=== PATIENT | male | born 1950 | race Caucasian/White ===

== ENCOUNTER 2020-04-22 16:49 | Outpatient (CLI) | payer OTHER, SELFPAY ==
--- NOTE | ~2020-04-22 | XR_ITS ---
EXAMINATION: XR chest 2V DATE: 04/22/2020 17:08 INDICATION: Chest pain TECHNIQUE: Frontal and lateral views of the chest are obtained COMPARISON: 06/08/2010 FINDINGS: The lungs are free of acute opacities. There is no pleural effusion or pneumothorax. The ca rdiomediastinal silhouette is normal. There is mild thoracic spondylosis. A dual-lead cardiac pacemak er of the left chest wall ends with leads in expected locations which appears to have undergone inter sierra revision. IMPRESSION: 1. No acute cardiopulmonary abnormality. Reviewed, dictated and finalized at location A. 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
== END 2020-04-22 16:50 | disposition home or self-care (01) ==
PROVIDERS: PCP Internal Medicine; Visit Provider Internal Medicine Cardiovascular Disease
DX: R07.89 Other chest pain (principal); Z95.0 Presence of cardiac pacemaker
CPT/HCPCS: 71046

== ENCOUNTER 2021-02-07 08:54 | Outpatient (CLI) | payer OTHER, SELFPAY ==
--- NOTE | ~2021-02-07 | CT_ITS ---
EXAMINATION: CT brain wo con DATE: 02/07/2021 09:16 INDICATION: Diminished cognitive function TECHNIQUE: Computed tomography (CT) of the head was performed without intravenous contrast. The mA wa s adjusted according to patient size. Iterative reconstruction technique was employed. Exam dose: 60 5.33 mGy-cm total exam DLP. COMPARISON: 10/04/2007 CT brain FINDINGS: No intracranial mass lesion or hemorrhage or cerebrovascular accident is detected. There is no midline shift or mass effect. Normal ventricular size. There are subtle bilateral basal ganglia calcifications. Bilateral carotid siphon internal carotid artery calcifications. There is nonspecific diminished atte nuation of the cerebral white matter, likely due to chronic small vessel ischemic changes. There is moderate cerebral and cerebellar volume loss. No subdural or epidural hematoma. No fracture or bone destruction of the cranial vault. Included paranasal sinuses and mastoid air cells are unremarkable. IMPRESSION: Cerebral atherosclerosis and chronic small vessel ischemic changes of cerebral Reviewed, dictated and finalized at Location A. Reviewed, dictated and finalized at location B.
[2021-02-07 11:13] LABS: Alanine Aminotransferase 9 U/L (4-50); Albumin Level 3.9 g/dL (3.5-5.1); Alkaline Phosphatase 60 U/L (38-126); Anion Gap 5 mmol/L (8-16); Aspartate Amino Transferase 17 U/L (17-59); Bilirubin,Total 0.6 mg/dL (0.2-1.3); Blood Urea Nitrogen 10 mg/dL (9-20); Calcium 8.8 mg/dL (8.4-10.2); Carbon Dioxide 29 mmol/L (22-30); Chloride 110 mmol/L (98-107); Cholesterol 155 mg/dL (0-200); Estimated Glomerular Filt Rate > 60; Glucose 105 mg/dL (65-110); HDL Direct 56 mg/dL; Potassium 4.4 mmol/L (3.4-5.0); Sodium 144 mmol/L (137-145); Triglycerides 83 mg/dL (<150)
[2021-02-07 11:18] LABS: Hemoglobin A1C 5.3 % (<5.7)
[2021-02-07 11:24] LABS: LDL Cholesterol Direct 87 mg/dL
== END 2021-02-07 08:55 | disposition home or self-care (01) ==
PROVIDERS: PCP Internal Medicine; Visit Provider Nurse Practitioner
DX: R41.89 Other symptoms and signs involving cognitive functions and awareness (principal); E78.5 Hyperlipidemia, unspecified; R73.09 Other abnormal glucose; I67.2 Cerebral atherosclerosis
CPT/HCPCS: 36415; 70450; 80053; 80061; 82607; 83036; 84443

== ENCOUNTER 2021-05-17 09:22 | Outpatient (CLI) | payer OTHER, SELFPAY ==
[2021-05-17 10:38] LABS: Alanine Aminotransferase 12 U/L (4-50); Albumin Level 4.1 g/dL (3.5-5.1); Alkaline Phosphatase 63 U/L (38-126); Anion Gap 9 mmol/L (8-16); Aspartate Amino Transferase 18 U/L (17-59); Bilirubin,Total 0.6 mg/dL (0.2-1.3); Blood Urea Nitrogen 7 mg/dL (9-20); Carbon Dioxide 27 mmol/L (22-30); Chloride 104 mmol/L (98-107); Cholesterol 172 mg/dL (0-200); Estimated Glomerular Filt Rate > 60; Glucose 115 mg/dL (65-110); HDL Direct 60 mg/dL; Hemoglobin A1C 5.4 % (<5.7); Potassium 4.2 mmol/L (3.4-5.0); Sodium 140 mmol/L (137-145); Triglycerides 90 mg/dL (<150)
[2021-05-17 10:51] LABS: LDL Cholesterol Direct 101 mg/dL
[2021-05-17 11:11] LABS: Prostate Specific Antigen 0.5 ng/mL (< OR = 4.0)
== END 2021-05-17 09:23 | disposition home or self-care (01) ==
PROVIDERS: Nurse Practitioner; PCP Internal Medicine; Visit Provider Internal Medicine
DX: E78.5 Hyperlipidemia, unspecified (principal); R73.09 Other abnormal glucose; Z12.5 Encounter for screening for malignant neoplasm of prostate; E53.8 Deficiency of other specified B group vitamins
CPT/HCPCS: 36415; 80053; 80061; 82607; 83036; 84153; G0103

== ENCOUNTER 2021-07-27 18:20 | Emergency (ER) | payer OTHER, SELFPAY ==
--- NOTE | ~2021-07-27 | CT_ITS ---
EXAMINATION: CT brain wo con DATE: 07/27/2021 19:38 INDICATION: Patient was found on the ground, with no memory of any fall. TECHNIQUE: Computed tomography (CT) of the head was performed without intravenous contrast. The mA wa s adjusted according to patient size. Iterative reconstruction technique was employed. Exam dose: 60 5.33 mGy-cm total exam DLP. COMPARISON: 02/07/2021 CT brain FINDINGS: Moderately prominent cerebral and cerebellar atrophy. No intracranial mass lesion or hemorr jillian or cerebrovascular accident is evident. No midline shift or mass effect. There is cerebral atherosclerosis and chronic small vessel ischemic changes of the cerebral white mat ter No subdural or epidural hematoma is detected. No fracture or bone destruction of the cranial vault. Included mastoid air cells and paranasal sinuses are unremarkable. IMPRESSION: Cerebral atherosclerosis and chronic small vessel ischemic changes of the cerebral white matter No acute intracranial finding or skull fracture Reviewed, dictated and finalized at Location A. Reviewed, dictated and finalized at location A.
--- NOTE | ~2021-07-27 | XR_ITS ---
XR ribs LT 2V w CXR 2V DATE: 07/27/2021 21:14 INDICATION: Found on ground [employer]; left rib pain. TECHNIQUE: COMPARISON: None FINDINGS: There is suggestion of left ventricular enlargement. Left-sided transvenous pacemaker device with leads overlying right atrium and right ventricle. No pulmonary infiltrate or consolidation, pleural effusion or pulmonary vascular congestion or pneumo thorax. No left rib fracture or bone destruction is evident. Approximately 6.5 mm calcification overlying upper right quadrant of abdomen, possibly a gallstone. Degenerative changes of the thoracic and lumbar spine. Diffuse osteopenia. Radiopaque sutures overlie the midline of the abdomen. IMPRESSION: Left-sided dual-lead pacemaker device No active pulmonary disease Probable calcified gallstone Reviewed, dictated and finalized at location A.
[2021-07-27 18:35] VITALS: BP 126/90; PULSE 84; RESP 17; TEMP 37.6; O2SAT 100
--- NOTE | 2021-07-27 19:10 | ECG_ITS ---
Measurements Intervals [place] Rate: 86 P: [place]: 0 QRS: 18 QRSD: 88 T: 10 QT: 383 QTc: 458 Interpretive Statements ATRIAL FIBRILLATION POSSIBLE RIGHT VENTRICULAR CONDUCTION DELAY [RSR (QR) IN V1/V2] ABNORMAL RHYTHM ECG NO PREVIOUS ECG AVAILABLE FOR COMPARISON Electronically Signed On 07-27-2021 20:30:42 CDT by Luz Michelle M.D.
[2021-07-27 19:56] LABS: Basophils Absolute Auto 0.1 K/mm3 (0.0-0.1); Basophils Percent Auto 0.6 % (0.2-1.2); Eosinophils Absolute Auto 0.1 K/mm3 (0-0.3); Hematocrit 39.6 % (42.0-52.0); Hemoglobin 13.3 g/dL (14.0-18.0); Immature Granulocyte Absolute 0.02 K/mm3 (0.00-0.031); Immature Granulocyte Percent A 0.2 % (0-0.5); Immature Platelet Fraction Pct 2.6 % (0.9-11.2); Lymphocytes Absolute Auto 1.92 K/mm3 (0.9-3.2); Lymphocytes Percent Auto 22.3 % (18.3-44.2); Mean Corpuscular HGB Conc 33.6 g/dl (32-36); Mean Corpuscular Hemoglobin 31.6 pg (26-34); Mean Corpuscular Volume 94.1 fl (80-100); Mean Platelet Volume 10.1 fl (7.4-10.4); Monocytes Absolute Auto 0.6 K/mm3 (0.1-0.6); Monocytes Percent Auto 6.6 % (2.6-8.5); Neutrophils Percent Auto 69.3 % (45.5-73.1); Platelet Count Result 134 k/mm3 (150-375); Red Blood Count 4.21 M/mm3 (4.6-6.20); Red Cell Distribution Width 13.2 % (11.5-14.5); White Blood Count 8.6 K/mm3 (4.5-10.0)
[2021-07-27 20:04] LABS: Ethanol < 10 mg/dL (<10)
[2021-07-27 20:08] LABS: Alanine Aminotransferase 8 U/L (4-50); Albumin Level 3.6 g/dL (3.5-5.1); Alkaline Phosphatase 65 U/L (38-126); Anion Gap 8 mmol/L (8-16); Aspartate Amino Transferase 18 U/L (17-59); Bilirubin,Total 0.8 mg/dL (0.2-1.3); Blood Urea Nitrogen 12 mg/dL (9-20); Calcium 8.4 mg/dL (8.4-10.2); Carbon Dioxide 25 mmol/L (22-30); Chloride 106 mmol/L (98-107); Estimated CRCL calculation 61 ml/min; Estimated Glomerular Filt Rate > 60; Glucose 91 mg/dL (65-110); Potassium 3.4 mmol/L (3.4-5.0); Sodium 139 mmol/L (137-145)
[2021-07-27 20:17] LABS: NT Pro B Type Natriuretic Pept 925 pg/mL (5-100)
[2021-07-27 20:19] LABS: Troponin I < 0.012 ng/mL (0.000-0.034)
--- NOTE | 2021-07-27 21:52 | ED.GENADULT ---
HPI - General Adult General Chief complaint: Weakness Stated complaint: altered and sob Time Seen by Provider: 07/27/21 18:56 Source: patient and EMS Mode of arrival: EMS Limitations: no limitations History of Present Illness HPI narrative: 71-year-old with a history of dementia s/p pacemaker was brought in by EMS, was found outside laying on his porch. Patient complains of left sided rib pain. He denies any loss of consciousness. He denies any shortness of breath, abdominal pain or headache. Onset (ago): unknown Location: chest (Left) Severity: mild Quality: aching Relieving factors: none Exacerbating factors: none Associated symptoms: denies other symptoms Related Data Home Medications Medication Instructions Recorded Confirmed metoprolol succinate 50 mg 50 mg PO DAILY 05/05/21 06/14/21 tablet,extended release 24 hr Allergies Allergy/AdvReac Type Severity Reaction Status Date / Time red dye Allergy Unknown Unknown Verified 06/14/21 10:12 shrimp Allergy Unknown Unknown Verified 06/14/21 10:12 iodine AdvReac Unknown cellulitis Verified 06/14/21 10:12 Review of Systems Review of Systems: All systems reviewed & are unremarkable except as noted in HPI and below Constitutional: Constitutional: Reports no additional constitutional complaints Eyes: Eyes: Reports no additional eye complaints ENT: Reports system reviewed and no additional complaints, except as documented Cardiovascular: Cardiovascular: Reports no additional cardiovascular complaints Respiratory: Respiratory: Reports no additional respiratory complaints Gastrointestinal: Gastrointestinal: Reports no additional gastrointestinal complaints Musculoskeletal: Musculoskeletal: Reports no additional musculoskeletal complaints Integumentary/Breasts: Skin/Breast: Reports system reviewed and no additional complaints, except as docu Neurologic: Reports system reviewed and no additional complaints, except as documented [facility] Past Medical History Medical History COVID-19 Elevated lipids Screening for prostate cancer Family History Family History Sibling Patient's sister is in good health Patient's brother is in good health Social History Social History Smoking status: Current every day smoker (pipe) Tobacco type: pipe Second hand tobacco smoke exposure: Yes Alcohol intake: never Substance use: never Substance use type: does not use Exam Narrative: GENERAL: Well-appearing, well-nourished, and in no acute distress. HEAD: Normocephalic, atraumatic. EYES: PERRLA and EOMI. NECK: Supple. CHEST: Clear to auscultation. No respiratory distress. There is no obvious bruising noted on the left hemithorax front and back. HEART: Regular rate and rhythm. No murmur heard. Normal peripheral pulses. ABDOMEN: Soft, nontender, nondistended, normal active bowel sounds. EXTREMITIES: Normal range of motion. No edema. SKIN: Warm, dry, no rash. NEURO: No focal deficits. Alert and oriented x3. PSYCH: Normal mood and affect. Course Course Emergency Course: With a history of dementia I did a CT of the head and blood work and left rib series nothing is obvious. You might of bruised. She feels comfortable going home. Informed him about lab work, x-ray findings. Vital Signs Vital signs: Vital Signs Temperature 37.6 C 07/27/21 18:35 Pulse Rate 84 07/27/21 18:35 Respiratory Rate 17 07/27/21 18:35 Blood Pressure 126/90 07/27/21 18:35 Pulse Oximetry 100 07/27/21 18:35 Temperature 37.6 C 07/27/21 18:35 Pulse Rate 84 07/27/21 18:35 Respiratory Rate 17 07/27/21 18:35 Blood Pressure 126/90 07/27/21 18:35 Pulse Oximetry 100 07/27/21 18:35 Medical Decision Making MDM Narrative Medical decision making narrative: 71-year-old with a history of dementia with a
[2021-07-27 22:24] VITALS: BP 111/78; PULSE 76; RESP 19; O2SAT 93
== END 2021-07-27 22:25 | disposition home or self-care (01) ==
PROVIDERS: Emergency Provider Family Medicine; PCP Internal Medicine
DX: S20.212A Contusion of left front wall of thorax, initial encounter (principal); I48.91 Unspecified atrial fibrillation; Z72.0 Tobacco use; Z86.16 Personal history of COVID-19; X58.XXXA Exposure to other specified factors, initial encounter; R06.02 Shortness of breath; Z79.899 Other long term (current) drug therapy
CPT/HCPCS: 36415; 70450; 71046; 71100; 80053; 80307; 83880; 84484; 85025; 85055; 93005; 99284

== ENCOUNTER 2023-06-29 15:38 | Outpatient (NON) | payer OTHER, SELFPAY ==
[2023-06-29 16:07] LABS: Appearance Urine Clear (Clear); Bilirubin Urine Negative (Negative); Blood Urine Negative (Negative); Color Urine Light Yellow (Yellow); Glucose Urine UA Negative (Negative); Ketones Urine Negative (Negative); Leukocyte Esterase Ur Negative LEU/UL (Negative); Nitrate Urine Negative (Negative); Protein Urine Negative (Negative); Specific Grav Ur >= 1.030 (1.010-1.020); Urobilinogen Urine 0.2 mg/dL (0.2-1.0)
[2023-06-29 16:08] LABS: Add Urine Microscopic? NO
== END 2023-06-29 15:39 | disposition home or self-care (01) ==
LOC: CHSLAB 15:42
PROVIDERS: Visit Provider Family Medicine
DX: R82.90 Unspecified abnormal findings in urine (principal)
CPT/HCPCS: 81003

== ENCOUNTER 2023-06-30 07:10 | Outpatient (NON) | payer OTHER, SELFPAY ==
[2023-06-30 07:22] LABS: Basophils Absolute Auto 0.04 K/mm3 (0.00-0.10); Basophils Percent Auto 0.7 % (0.0-1.0); Eosinophils Absolute Auto 0.09 K/mm3 (0.02-0.50); Eosinophils Percent Auto 1.5 % (1.0-6.0); Hematocrit 42.5 % (37.0-46.0); Immature Granulocyte Absolute 0.02 K/mm3 (0.00-0.00); Immature Granulocyte Percent A 0.3 % (0.0-0.0); Lymphocytes Absolute Auto 2.22 K/mm3 (1.10-4.50); Lymphocytes Percent Auto 36.2 % (18.0-42.0); Mean Corpuscular HGB Conc 32.9 g/dL (32.0-36.0); Mean Corpuscular Volume 91.2 fL (78.0-102.0); Mean Platelet Volume 9.7 fl (8.7-11.0); Monocytes Absolute Auto 0.54 K/mm3 (0.10-0.90); Monocytes Percent Auto 8.8 % (2.0-11.0); Neutrophils Absolute Auto 3.2 K/mm3 (1.7-7.2); Neutrophils Percent Auto 52.5 % (50.0-70.0); Platelet Count Result 174 K/mm3 (150-420); Red Blood Count 4.66 M/mm3 (4.70-6.10); Red Cell Distribution Width 13.4 % (11.6-14.4); White Blood Count 6.1 K/mm3 (4.8-10.8)
[2023-06-30 07:25] LABS: Anion Gap 9 mmol/L (8-16); Blood Urea Nitrogen 10 mg/dL (7-18); Calcium 8.4 mg/dL (8.5-10.1); Carbon Dioxide 27 mmol/L (21-32); Chloride 106 mmol/L (98-108); Estimated Glomerular Filt Rate > 60; Glucose 106 mg/dL (70-99); Osmolality Calculated 293 mOsm/kg (285-295); Potassium 4.1 mmol/L (3.5-5.1); Sodium 142 mmol/L (136-145)
== END 2023-06-30 07:11 | disposition home or self-care (01) ==
PROVIDERS: Visit Provider Family Medicine
DX: N40.0 Benign prostatic hyperplasia without lower urinary tract symptoms (principal); K21.9 Gastro-esophageal reflux disease without esophagitis; E55.9 Vitamin D deficiency, unspecified; D69.6 Thrombocytopenia, unspecified; E78.5 Hyperlipidemia, unspecified; I10 Essential (primary) hypertension
CPT/HCPCS: 36415; 80048; 85025

== ENCOUNTER 2023-10-16 11:14 | Inpatient (IN) | payer MEDICARE, SELFPAY ==
[2023-10-16] VITALS (8 sets, daily range): BP systolic 112–134; BP diastolic 70–95; PULSE 79–96; RESP 12–19; TEMP 36.4–36.6; O2SAT 90–98; BMI 19.8
--- NOTE | ~2023-10-16 | XR_ITS ---
EXAMINATION: XR chest 2V 10/16/2023 12:35 INDICATION: Weakness. Coffee-ground emesis. PROCEDURE: AP and lateral views of the chest COMPARISON: Comparison to multiple prior studies sequentially, with oldest reviewed study dated 07/27. FINDINGS: The lungs are clear. The cardiomediastinal silhouette is within normal limits. There are no pleural effusions. There is no pneumothorax suspected. Pacemaker leads are stable. Mild thoracic spondylosis. IMPRESSION: 1: NO ACUTE CARDIOPULMONARY DISEASE. Reviewed, dictated and finalized at location B.
--- NOTE | ~2023-10-16 | XR_ITS ---
Portable chest x-ray Comparison: 10/16/2023 Clinical History: Leukocytosis Findings: Lungs are clear, without focal consolidation or pleural effusion. Cardiomediastinal silho uette is stable, with pacemaker device. Bones and soft tissues are unremarkable. Impression: Clear lungs. Reviewed, dictated and finalized at [facility]. Impression: Clear lungs.
--- NOTE | 2023-10-16 11:25 | ECG_ITS ---
[facility] [address] Test Date: 2023-10-16 Pat Name: Jefe Rea Department: Room: Gender: M Annual Giving Manager: : 1950 Requested By: Denys Espinosa Order Number: [id number] Stuart MD: Evangelina Boone M.D. Measurements Intervals [place] Rate: 80 P: 0 [place]: 0 QRS: 20 QRSD: 97 T: -16 QT: 362 QTc: 418 Interpretive Statements ATRIAL FIBRILLATION WITH ABERRANT CONDUCTION OR VENTRICULAR PREMATURE COMPLEXES MODERATE T-WAVE ABNORMALITY, CONSIDER ANTERIOR ISCHEMIA [-0.1+ mV T WAVE IN V3/V4] No previous ECG available for comparison Electronically Signed On 10-16-2023 14:26:26 CDT by Evangelina Boone M.D.
[2023-10-16 12:09] LABS: Basophils Percent Auto 0.5 % (0.2-1.2); Eosinophils Percent Auto 0.1 % (0-4.4); Hemoglobin 15.9 g/dL (14.0-18.0); Immature Granulocyte Absolute 0.02 K/mm3 (0.00-0.031); Immature Granulocyte Percent A 0.3 % (0-0.5); Lymphocytes Absolute Auto 0.73 K/mm3 (0.9-3.2); Lymphocytes Percent Auto 9.2 % (18.3-44.2); Mean Corpuscular HGB Conc 33.1 g/dl (32-36); Mean Corpuscular Hemoglobin 31.3 pg (26-34); Mean Corpuscular Volume 94.5 fl (80-100); Mean Platelet Volume 11.6 fl (7.4-10.4); Monocytes Absolute Auto 0.7 K/mm3 (0.1-0.6); Monocytes Percent Auto 8.3 % (2.6-8.5); Neutrophils Absolute Auto 6.5 K/mm3 (1.3-6.7); Neutrophils Percent Auto 81.6 % (45.5-73.1); Platelet Count Result 152 k/mm3 (150-375); Red Blood Count 5.08 M/mm3 (4.6-6.20); Red Cell Distribution Width 14.6 % (11.5-14.5); White Blood Count 7.9 K/mm3 (4.5-10.0)
[2023-10-16 12:12] LABS: Appearance Urine Clear (Clear); Bilirubin Urine Negative (Negative); Blood Urine Negative (Negative); Color Urine Yellow (Yellow); Glucose Urine UA Negative (Negative); Ketones Urine 1+ mg/dL (Negative); Leukocyte Esterase Ur Negative LEU/UL (Negative); Nitrate Urine Negative (Negative); Protein Urine Negative (Negative); Urobilinogen Urine 0.2 mg/dL (<2.0)
[2023-10-16 12:15] LABS: Add Urine Microscopic? NO
[2023-10-16 12:21] LABS: Alanine Aminotransferase 30 U/L (6-50); Albumin Level 4.7 g/dL (3.5-5.1); Alkaline Phosphatase 86 U/L (38-126); Anion Gap 14 mmol/L (4-12); Aspartate Amino Transferase 35 U/L (17-59); Blood Urea Nitrogen 39 mg/dL (9-20); Calcium 9.6 mg/dL (8.4-10.2); Carbon Dioxide 28 mmol/L (22-30); Chloride 102 mmol/L (98-107); Estimated CRCL calculation 39 ml/min; Estimated Glomerular Filt Rate 49; Glucose 130 mg/dL (65-110); Potassium 4.5 mmol/L (3.4-5.0); Sodium 144 mmol/L (137-145)
--- NOTE | 2023-10-16 12:31 | ED.WEAKNESS ---
HPI - Weakness General Chief complaint: Weakness Stated complaint: GI bleed Time Seen by Provider: 10/16/23 12:30 Source: EMS and RN notes reviewed Mode of arrival: EMS Limitations: dementia History of Present Illness HPI Narrative: 73-year-old male presents from half-way facility/nursing facility with reported complaint of weakness. It is reported that he has been vomiting and there was a allegedly coffee-ground emesis. Patient has underlying dementia and is unable to provide history. It is reported that at baseline he is alert and oriented x2. He does not know if he is having abdominal pain. facility had reported that he has had decreased urinary output as well as decreased bowel movements. He received Zofran from EMS. skilled nursing documentation does not list any underlying liver disease or heart failure. Patient's medication list from skilled nursing is reviewed which shows aspirin but no heart failure modifying medications nor anticoagulation/ NSAIDs/steroids/chemo. Related Data Home Medications Medication Instructions Recorded Confirmed metoprolol succinate 50 mg 50 mg PO DAILY 05/05/21 10/16/23 tablet,extended release 24 hr allopurinol 100 mg tablet 100 mg PO DAILY 10/16/23 10/16/23 alprazolam 0.25 mg tablet 0.25 mg PO BID PRN Anxiety 10/16/23 10/16/23 aspirin 81 mg tablet,delayed 81 mg PO DAILY 10/16/23 10/16/23 release cholecalciferol (vitamin D3) 25 25 mcg PO DAILY 10/16/23 10/16/23 mcg (1,000 unit) capsule (Vitamin D3) colchicine 0.6 mg capsule 0.6 mg PO DAILY 10/16/23 10/16/23 divalproex 125 mg capsule,delayed 125 mg PO BID 10/16/23 10/16/23 release sprinkle donepezil 5 mg tablet 5 mg PO HS 10/16/23 10/16/23 melatonin 5 mg tablet 5 mg PO HS 10/16/23 10/16/23 Allergies Allergy/AdvReac Type Severity Reaction Status Date / Time red dye Allergy Unknown Unknown Verified 06/14/21 10:12 shrimp Allergy Unknown Unknown Verified 06/14/21 10:12 iodine AdvReac Unknown cellulitis Verified 06/14/21 10:12 [facility] Past Medical History Medical History Anxiety disorder, unspecified COVID-19 Deficiency of other specified B group vitamins Essential (primary) hypertension Gastroesophageal reflux disease with esophagitis without hemorrhage Hyperlipidemia Idiopathic gout, unspecified ankle and foot Insomnia, unspecified Mixed hyperlipidemia Nicotine dependence, unspecified, uncomplicated Other amnesia Pacemaker Primary thrombocytopenia, unspecified Screening for prostate cancer Unspecified dementia, unspecified severity, without behavioral disturbance, psychotic disturbance, mood disturbance, and anxiety Vitamin B12 deficiency anemia, unspecified Family History Family History Sibling Patient's sister is in good health Patient's brother is in good health Social History Social History (Updated 10/16/23 @ 13:09 by Gretel Deal MD) Social History: No code status indicated per facility documentation Smoking status: Current every day smoker Tobacco type: cigarettes Second hand tobacco smoke exposure: Yes Alcohol intake: never Substance use: never Substance use type: does not use Additional living arrangements comments: [facility] 08/26[facility]21 Spiritual care concerns: No Exam Narrative: GENERAL: Well-appearing, well-nourished, and in no acute distress. HEAD: Normocephalic, atraumatic. EYES: Non injected, non icteric ENT: Nares clear, no rhinorrhea or epistaxis. no pina or dried blood in posterior oropharynx. Dry mucous membranes. NECK: Supple. CHEST: Speaking in full sentences. No respiratory distress. HEART: Regular rate and rhythm. . ABDOMEN: Soft, nondistended. Well-healed midline scar. No tenderness to palpation. Abdomen is without rigidity or guarding. Not peritoneal. Rectal exam performed with nurse Andres lackey
[2023-10-16] MEDS: PANTOPRAZOLE SODIUM IV 40 MG VIAL 80 MG IV PUSH (12:49)
[2023-10-16] MEDS: SODIUM CHLORIDE 0.9% IV 1,000 ML 999 ML IV CONT (13:06)
[2023-10-16 13:08] LABS: Magnesium 2.1 mg/dL (1.6-2.3)
[2023-10-16 13:17] LABS: Troponin I < 0.012 ng/mL (0.000-0.034)
[2023-10-16 13:19] LABS: Partial Thromboplastin Time 26.3 Seconds (22.3-36.8); Prothrombin Time 14.1 Seconds (11.1-14.7)
[2023-10-16 13:39] LABS: Lactic Acid Reflex 1.9 mmol/L (0.7-2.0)
--- NOTE | 2023-10-16 14:31 | PC.NURSE ---
[facility] updated on patient status and admission to hospital.
--- NOTE | 2023-10-16 16:16 | PC.NURSE ---
This patient, Jefe Rea, was admitted to [facility] Room 323-02. Patient/family oriented to hospital policies and general routines including ID bracelet, bed and alarms, visiting hours, pain management, procedures, bathroom and other care routines, personal items, smoking policy, room service/diet, and visiting hours. Information on how to activate the Rapid Response Team has been discussed. Patient/Family are encouraged to report perceived risks to care and to ask questions if they do not understand what they are told or what they should do.
--- NOTE | 2023-10-16 16:18 | PC.NURSE ---
Admission questions were completed to the best of RN ability. Patient is oriented to person only at this time. Patient has history of dementia. RN completed medication reconciliation and admission with transfer sheets sent from [facility] to [facility] with EMS.
[2023-10-16 16:38] LABS: Hematocrit 43.5 % (42.0-52.0); Hemoglobin 13.6 g/dL (14.0-18.0)
[2023-10-16 16:44] LABS: Anion Gap 9 mmol/L (4-12); Blood Urea Nitrogen 37 mg/dL (9-20); Calcium 8.8 mg/dL (8.4-10.2); Carbon Dioxide 28 mmol/L (22-30); Chloride 106 mmol/L (98-107); Estimated CRCL calculation 46 ml/min; Estimated Glomerular Filt Rate 59; Glucose 116 mg/dL (65-110); Potassium 4.3 mmol/L (3.4-5.0); Sodium 143 mmol/L (137-145)
[2023-10-16] MEDS: LACTATED RINGERS 1,000 ML 125 ML IV CONT (16:49)
--- NOTE | 2023-10-16 20:07 | PM.IMHP ---
H&P: HPI History of Present Illness Date/Time: 10/16/23 20:07 Chief Complaint: coughed up blood Narrative: patient is 73-year-old male who [facility] report to be complain of weakness also reported that he had some vomiting and coffee-ground emesis. Patient has underlying dementia and hyperlipidemia is alert oriented x2. Unable to give us any concrete history what happens but eating comfortably denied any chest pain no shortness of breath fevers chills nausea vomiting diarrhea noted the stools denies any history of shortness of breath denies any use of any new medications for pain. On checking patient's med list patient is not on any anticoagulation drugs no NSAID no steroids no chemotherapy Review of Systems Review of Systems: All systems reviewed & are unremarkable except as noted in HPI and below PMFSH Past Medical History Medical History Anxiety disorder, unspecified COVID-19 Deficiency of other specified B group vitamins Essential (primary) hypertension Gastroesophageal reflux disease with esophagitis without hemorrhage Hyperlipidemia Idiopathic gout, unspecified ankle and foot Insomnia, unspecified Mixed hyperlipidemia Nicotine dependence, unspecified, uncomplicated Other amnesia Pacemaker Primary thrombocytopenia, unspecified Screening for prostate cancer Unspecified dementia, unspecified severity, without behavioral disturbance, psychotic disturbance, mood disturbance, and anxiety Vitamin B12 deficiency anemia, unspecified Family History Family History Sibling Patient's sister is in good health Patient's brother is in good health Social History Social History (Updated 10/16/23 @ 13:09 by Gretel Deal MD) Social History: No code status indicated per facility documentation Smoking status: Current every day smoker Tobacco type: cigarettes Second hand tobacco smoke exposure: Yes Alcohol intake: never Substance use: never Substance use type: does not use Additional living arrangements comments: [facility] since 08/26/21 Spiritual care concerns: No Meds Home Medications and Allergies Home Medications Medication Instructions Recorded Confirmed Type metoprolol succinate 50 mg 50 mg PO DAILY 05/05/21 10/16/23 History tablet,extended release 24 hr allopurinol 100 mg tablet 100 mg PO DAILY 10/16/23 10/16/23 History alprazolam 0.25 mg tablet 0.25 mg PO BID PRN Anxiety 10/16/23 10/16/23 History aspirin 81 mg tablet,delayed 81 mg PO DAILY 10/16/23 10/16/23 History release cholecalciferol (vitamin D3) 25 25 mcg PO DAILY 10/16/23 10/16/23 History mcg (1,000 unit) capsule (Vitamin D3) colchicine 0.6 mg capsule 0.6 mg PO DAILY 10/16/23 10/16/23 History divalproex 125 mg capsule,delayed 125 mg PO BID 10/16/23 10/16/23 History release sprinkle donepezil 5 mg tablet 5 mg PO HS 10/16/23 10/16/23 History melatonin 5 mg tablet 5 mg PO HS 10/16/23 10/16/23 History Allergies Allergy/AdvReac Type Severity Reaction Status Date / Time red dye Allergy Unknown Unknown Verified 06/14/21 10:12 shrimp Allergy Unknown Unknown Verified 06/14/21 10:12 iodine AdvReac Unknown cellulitis Verified 06/14/21 10:12 Vital Signs Vital Signs - 24 hr 10/16/23 11:15 10/16/23 12:55 10/16/23 15:03 Temperature 36.6 C Pulse Rate 83 96 87 Respiratory Rate 19 12 16 Blood Pressure 126/88 117/86 112/70 Pulse Oximetry 97 98 96 Oxygen Delivery Room Air Fraction of Inspired Oxygen 10/16/23 16:23 10/16/23 16:54 10/16/23 16:00 Temperature 36.4 C Pulse Rate 79 81 Respiratory Rate 16 Blood Pressure 128/73 Pulse Oximetry 93 93 Oxygen Delivery Room Air Fraction of Inspired Oxygen 21 Exam Narrative: GENERAL: Well appearing, no acute distress. HEAD: Normocephalic, atraumatic. NECK: Supple. No susan
[2023-10-16] MEDS: ONDANSETRON INJ 4 MG/2 ML VIAL IV PUSH (20:37)
[2023-10-16] MEDS: PANTOPRAZOLE SODIUM IV 40 MG VIAL IV PUSH (20:37)
[2023-10-16 20:58] LABS: Hematocrit 43.1 % (42.0-52.0); Hemoglobin 14.4 g/dL (14.0-18.0); Immature Platelet Fraction Pct 4.8 % (0.9-11.2); Mean Corpuscular HGB Conc 33.4 g/dl (32-36); Mean Corpuscular Hemoglobin 31.2 pg (26-34); Mean Corpuscular Volume 93.5 fl (80-100); Mean Platelet Volume 11.1 fl (7.4-10.4); Platelet Count Result 134 k/mm3 (150-375); Red Blood Count 4.61 M/mm3 (4.6-6.20); Red Cell Distribution Width 14.6 % (11.5-14.5); White Blood Count 6.1 K/mm3 (4.5-10.0)
[2023-10-16 21:18] LABS: Alanine Aminotransferase 28 U/L (6-50); Albumin Level 4.2 g/dL (3.5-5.1); Alkaline Phosphatase 88 U/L (38-126); Anion Gap 12 mmol/L (4-12); Aspartate Amino Transferase 30 U/L (17-59); Bilirubin,Total 1.1 mg/dL (0.2-1.3); Blood Urea Nitrogen 36 mg/dL (9-20); Calcium 9.1 mg/dL (8.4-10.2); Carbon Dioxide 23 mmol/L (22-30); Chloride 106 mmol/L (98-107); Estimated CRCL calculation 46 ml/min; Estimated Glomerular Filt Rate 59; Glucose 147 mg/dL (65-110); Potassium 3.9 mmol/L (3.4-5.0); Sodium 141 mmol/L (137-145)
[2023-10-17] VITALS (9 sets, daily range): BP systolic 92–118; BP diastolic 54–81; PULSE 61–116; RESP 16–22; TEMP 36.3–36.5; O2SAT 93–100; BMI 19.8
[2023-10-17] MEDS: PROMETHAZINE HCL 25 MG/ML AMPUL IM (05:55)
--- NOTE | 2023-10-17 10:00 | PC.NURSE ---
RN called [facility] and gave update on patient.
--- NOTE | 2023-10-17 10:15 | PM.IMPN ---
Progress Note: A&P Assessment and Plan (1) BRIGID (acute kidney injury): Code(s): N17.9 - Acute kidney failure, unspecified Status: Acute (2) Atrial fibrillation: Code(s): I48.91 - Unspecified atrial fibrillation Status: Acute (3) Coffee ground emesis: Code(s): K92.0 - Hematemesis Status: Acute (4) Weakness: Code(s): R53.1 - Weakness Status: Acute (5) BPH w/o urinary obs/LUTS: Code(s): N40.0 - Benign prostatic hyperplasia without lower urinary tract symptoms Status: Acute Plan upper GI bleed monitor H& H. 15.9 -13.6 -14.4 Continue IV hydration. Continue IV Protonix. NPO after midnight. No aspirin No anticoagulation GI consult in the morning. may need EGD and colonoscopy Avoid any NSAID use or any steroid use BRIGID cause dehydration serum creatinine 1.4-1.2 Avoid nephrotoxic drugs. Monitor antihypertensive drug therapy. Avoid NSAIDs. Routine CMP monitoring GFR. Monitor electrolytes especially potassium. history of atrial fibrillation. Noted on any anticoagulant due to risk of falls History of hyperlipidemia history of anxiety continue alprazolam Depakote history hypertension continue metoprolol. History memory loss continue Aricept and melatonin history of gout will hold colchicine patient has no symptoms Subjective Date/time seen: 10/17/23 10:15 Interval history: Not really answering question still feels tired states that he can sleep last night so he is resting now no chest pain shortness a breath denies any hemoptysis or hematemesis or tarry stools Review of Systems Review of Systems: All systems reviewed & are unremarkable except as noted in HPI and below Exam Narrative: GENERAL: Well appearing, no acute distress. HEAD: Normocephalic, atraumatic. NECK: Supple. No adenopathy, no masses. RESPIRATORY: respirations nonlabored. , no rales, wheezing. CARDIOVASCULAR: IRRegular rate and rhythm without murmurs, . Peripheral pulses 2+ and equal bilaterally. ABDOMINAL: Soft, nontender, nondistended, no hepatosplenomegaly. Normoactive BS. MUSCULOSKELETAL: no Epigastric and no hypochondrial tenderness SKIN: Warm, dry, NEURO: A&O X3. Moves all extremities Objective Data Vital Signs Vital Signs: Vital Signs - 24 hr 10/16/23 11:15 06/04/24 12:55 10/16/23 15:03 Temperature 36.6 C Pulse Rate 83 96 87 Respiratory Rate 19 12 16 Blood Pressure 126/88 117/86 112/70 Pulse Oximetry 97 98 96 Oxygen Delivery Room Air Fraction of Inspired Oxygen 10/16/23 16:23 10/16/23 16:54 10/16/23 16:00 Temperature 36.4 C Pulse Rate 79 81 Respiratory Rate 16 Blood Pressure 128/73 Pulse Oximetry 93 93 Oxygen Delivery Room Air Fraction of Inspired Oxygen 21 10/16/23 21:18 10/16/23 20:00 10/17/23 06:11 Temperature 36.5 C 36.3 C L Pulse Rate 82 82 108 H Respiratory Rate 18 18 18 Blood Pressure 134/95 H 99/75 L Pulse Oximetry 90 90 97 Oxygen Delivery Room Air Fraction of Inspired Oxygen 21 Intake/Output Intake/Output: Intake & Output 10/14/23 10/15/23 10/16/23 10/17/23 23:59 23:59 23:59 23:59 Intake Total 2395 0 Output Total 650 Balance 1745 0 Meds/Results Medications: Active Medications Generic Name Dose Route Start Last Admin Trade Name Freq PRN Reason Stop Dose Admin Acetaminophen 650 mg 10/16/23 13:57 Acetaminophen 325 Mg Tablet PO Q4H PRN Mild Pain (1-3) or Fever Lactated Ringer's 1,000 mls @ 125 mls/hr 10/16/23 14:00 10/16/23 22:37 Lr - Lactated Ringers Iv IV CONT 0 mls/hr .Q8H SIDRA Infusion Ondansetron HCl 4 mg 10/16/23 13:57 10/16/23 20:37 Ondansetron Inj 4 Mg/2 Ml Vial IV PUSH 4 mg Q4H PRN Administration Nausea Ondansetron HCl 4 mg 10/16/23 20:13 Ondansetron Inj 4 Mg/2 Ml Vial IV PUSH Q6H PRN Nausea And Vomiting Pantoprazole Sodium 40 mg 10/16/23 21:00 10/16/23 20:37
--- NOTE | 2023-10-17 10:15 | PC.NURSE ---
RN called Anders to obtain consent for EGD since patient is unable to sign consent due to dementia. No answer at this time.
[2023-10-17 10:42] LABS: Hematocrit 44.6 % (42.0-52.0); Hemoglobin 14.6 g/dL (14.0-18.0); Immature Platelet Fraction Pct 4.8 % (0.9-11.2); Mean Corpuscular HGB Conc 32.7 g/dl (32-36); Mean Corpuscular Hemoglobin 31.2 pg (26-34); Mean Corpuscular Volume 95.3 fl (80-100); Mean Platelet Volume 11.3 fl (7.4-10.4); Platelet Count Result 124 k/mm3 (150-375); Red Blood Count 4.68 M/mm3 (4.6-6.20); Red Cell Distribution Width 14.6 % (11.5-14.5); White Blood Count 4.9 K/mm3 (4.5-10.0)
[2023-10-17 10:50] LABS: Alanine Aminotransferase 29 U/L (6-50); Albumin Level 4.1 g/dL (3.5-5.1); Alkaline Phosphatase 69 U/L (38-126); Anion Gap 10 mmol/L (4-12); Aspartate Amino Transferase 39 U/L (17-59); Blood Urea Nitrogen 39 mg/dL (9-20); Calcium 9.4 mg/dL (8.4-10.2); Carbon Dioxide 28 mmol/L (22-30); Chloride 105 mmol/L (98-107); Estimated CRCL calculation 39 ml/min; Estimated Glomerular Filt Rate 49; Glucose 124 mg/dL (65-110); Potassium 3.7 mmol/L (3.4-5.0); Sodium 143 mmol/L (137-145)
--- NOTE | 2023-10-17 11:31 | PC.NURSE ---
RN spoke with IV ultrasound Amadou Meehan to obtain new IV access on patient. He stated he will add patient to his list to see today.
--- NOTE | 2023-10-17 11:32 | PC.NURSE ---
Anders (sibling) called RN back. RODGER obtained consent for EGD via telephone from Anders and verified with Steven SOARES.
--- NOTE | 2023-10-17 13:56 | PC.NURSE ---
Patient off of unit to GI lab
[2023-10-17] MEDS: LACTATED RINGERS 1,000 ML 150 ML IV CONT (14:18)
--- NOTE | 2023-10-17 14:35 | WPDANESEPPF ---
Anes - Initial Pre Proc Eval Procedure: Operation Date: 10/17/23 16:00 Proposed Procedures p Esophagogastroduodenoscopy - Nick Collier MD Date/Time: 10/17/23 14:35 Surgeon: Amador Meeks MD Pre Op Diagnosis: ? Upper GIB/Report coffee ground emesis/BRIGID/Rate C Patient Data Age: 73 Gender: M Height: 1.85 m Weight: 68 kg Last Vital Signs Temp 97.7 F 10/17/23 14:13 Pulse 61 10/17/23 14:13 Resp 22 H 10/17/23 14:13 BP 101/81 10/17/23 14:13 Pulse Ox 93 10/17/23 14:13 O2 Del Method Room Air 10/17/23 14:13 FiO2 21 10/16/23 20:00 Allergies Allergy/AdvReac Type Severity Reaction Status Date / Time red dye Allergy Unknown Unknown Verified 06/14/21 10:12 shrimp Allergy Unknown Unknown Verified 06/14/21 10:12 iodine AdvReac Unknown cellulitis Verified 06/14/21 10:12 Home Medications Medication Instructions Recorded Confirmed Type metoprolol succinate 50 mg 50 mg PO DAILY 05/05/21 10/16/23 History tablet,extended release 24 hr allopurinol 100 mg tablet 100 mg PO DAILY 10/16/23 10/16/23 History alprazolam 0.25 mg tablet 0.25 mg PO BID PRN Anxiety 10/16/23 10/16/23 History aspirin 81 mg tablet,delayed 81 mg PO DAILY 10/16/23 10/16/23 History release cholecalciferol (vitamin D3) 25 25 mcg PO DAILY 10/16/23 10/16/23 History mcg (1,000 unit) capsule (Vitamin D3) colchicine 0.6 mg capsule 0.6 mg PO DAILY 10/16/23 10/16/23 History divalproex 125 mg capsule,delayed 125 mg PO BID 10/16/23 10/16/23 History release sprinkle donepezil 5 mg tablet 5 mg PO HS 10/16/23 10/16/23 History melatonin 5 mg tablet 5 mg PO HS 10/16/23 10/16/23 History Laboratory Tests 10/16/23 10/16/23 10/17/23 16:12 20:50 10:27 WBC 6.1 K/mm3 4.9 K/mm3 (4.5-10.0) (4.5-10.0) RBC 4.61 M/mm3 4.68 M/mm3 (4.6-6.20) (4.6-6.20) Hgb 13.6 L g/dL 14.4 g/dL 14.6 g/dL (14.0-18.0) (14.0-18.0) (14.0-18.0) Hct 43.5 % 43.1 % 44.6 % (42.0-52.0) (42.0-52.0) (42.0-52.0) MCV 93.5 fl 95.3 fl (80-100) (80-100) MCH 31.2 pg 31.2 pg (26-34) (26-34) MCHC 33.4 g/dl 32.7 g/dl (32-36) (32-36) RDW 14.6 H % 14.6 H % (11.5-14.5) (11.5-14.5) Plt Count 134 L k/mm3 124 L k/mm3 (150-375) (150-375) MPV 11.1 H fl 11.3 H fl (7.4-10.4) (7.4-10.4) % Immature Plt Fraction 4.8 % 4.8 % (0.9-11.2) (0.9-11.2) Sodium 143 mmol/L 141 mmol/L 143 mmol/L (137-145) (137-145) (137-145) Potassium 4.3 mmol/L 3.9 mmol/L 3.7 mmol/L (3.4-5.0) (3.4-5.0) (3.4-5.0) Chloride 106 mmol/L 106 mmol/L 105 mmol/L (98-107) (98-107) (98-107) Carbon Dioxide 28 mmol/L 23 mmol/L 28 mmol/L (22-30) (22-30) (22-30) Anion Gap 9 mmol/L 12 mmol/L 10 mmol/L (4-12) (4-12) (4-12) BUN 37 H mg/dL 36 H mg/dL 39 H mg/dL (9-20) (9-20) (9-20) Creatinine 1.20 mg/dL 1.20 mg/dL 1.40 H mg/dL (0.7-1.3) (0.7-1.3) (0.7-1.3) Estim Creat Clear Calc 46 ml/min 46 ml/min 39 ml/min Estimated GFR 59 59 49 L (59 - ) (59 - ) (59 - ) Glucose 116 H mg/dL 147 H mg/dL 124 H mg/dL (65-110) (65-110) (65-110) Calcium 8.8 mg/dL 9.1 mg/dL 9.4 mg/dL (8.4-10.2) (8.4-10.2) (8.4-10.2) Total Bilirubin 1.1 mg/dL 1.0 mg/dL (0.2-1.3) (0.2-1.3) AST 30 U/L 39 U/L (17-59) (17-59) ALT 28 U/L 29 U/L (6-50) (6-50) Alkaline Phosphatase 88 U/L 69 U/L (38-126) (38-126) Total Protein 7.0 g/dL 7.0 g/dL (6.3-8.2) (6.3-8.2) Albumin 4.2 g/dL 4.1 g/dL (3.5-5.1) (3.5-5.1) Patient hx anesthesia problems: none Family hx anesthesia problems: none Results Review: All pre-operative results and documents have been reviewed as part of the pre-operative evaluation. [facility] Past Medical History Medical History Anxiety disorder, unspecified COVID-19 Defic
--- NOTE | 2023-10-17 14:52 | WPDGICN ---
Assessment and Plan Assessment and plan (1) Coffee ground emesis: Code(s): K92.0 - Hematemesis Status: Acute Assessment and Plan: no more report of bleeding and h/h stable iv protonix will proceed with egd, ? esophagitis, ulcer more recommendations after scope (2) Atrial fibrillation: Code(s): I48.91 - Unspecified atrial fibrillation Status: Acute (3) BRIGID (acute kidney injury): Code(s): N17.9 - Acute kidney failure, unspecified Status: Acute Assessment and Plan: monitor, fluids (4) Dementia: Code(s): F03.90 - Unspecified dementia, unspecified severity, without behavioral disturbance, psychotic disturbance, mood disturbance, and anxiety Status: Acute GI Consult Note Consult date/time: 10/17/23 14:52 Reason for consult: coffee ground emesis. HPI: Jefe Rea is a 73 year old male who lives at a half-way facility report to be complain of weakness and staff noticed coffee-ground emesis. Patient has underlying dementia and hyperlipidemia and he is poor historian, mostly obtained from records. History of afib s/p pacemaker, colon polyps 2018 (reviewed). Hgb 13.6 and stable, bun 39, creat 1.4. CXR unremarkable. He is comfortable. Review of Systems Review of Systems: ROS unobtainable: Yes unobtainable due to mental status PMFSH Past Medical History Medical History (Updated 10/17/23 @ 14:56 by Nick Collier MD) Anxiety disorder, unspecified COVID-19 Deficiency of other specified B group vitamins Dementia Essential (primary) hypertension Gastroesophageal reflux disease with esophagitis without hemorrhage Hyperlipidemia Idiopathic gout, unspecified ankle and foot Insomnia, unspecified Mixed hyperlipidemia Nicotine dependence, unspecified, uncomplicated Other amnesia Pacemaker Primary thrombocytopenia, unspecified Screening for prostate cancer Unspecified dementia, unspecified severity, without behavioral disturbance, psychotic disturbance, mood disturbance, and anxiety Vitamin B12 deficiency anemia, unspecified Family History Family History Sibling Patient's sister is in good health Patient's brother is in good health Social History Social History (Updated 10/16/23 @ 13:09 by Gretel Deal MD) Social History: No code status indicated per facility documentation Smoking status: Current every day smoker Tobacco type: cigarettes Second hand tobacco smoke exposure: Yes Alcohol intake: never Substance use: never Substance use type: does not use Additional living arrangements comments: [facility] since 08/26/21 Spiritual care concerns: No Meds Home Medications and Allergies Home Medications Medication Instructions Recorded Confirmed Type metoprolol succinate 50 mg 50 mg PO DAILY 05/05/21 10/16/23 History tablet,extended release 24 hr allopurinol 100 mg tablet 100 mg PO DAILY 10/16/23 10/16/23 History alprazolam 0.25 mg tablet 0.25 mg PO BID PRN Anxiety 10/16/23 10/16/23 History aspirin 81 mg tablet,delayed 81 mg PO DAILY 10/16/23 10/16/23 History release cholecalciferol (vitamin D3) 25 25 mcg PO DAILY 10/16/23 10/16/23 History mcg (1,000 unit) capsule (Vitamin D3) colchicine 0.6 mg capsule 0.6 mg PO DAILY 10/16/23 10/16/23 History divalproex 125 mg capsule,delayed 125 mg PO BID 10/16/23 10/16/23 History release sprinkle donepezil 5 mg tablet 5 mg PO HS 10/16/23 10/16/23 History melatonin 5 mg tablet 5 mg PO HS 10/16/23 10/16/23 History Allergies Allergy/AdvReac Type Severity Reaction Status Date / Time red dye Allergy Unknown Unknown Verified 06/14/21 10:12 shrimp Allergy Unknown Unknown Verified 06/14/21 10:12 iodine AdvReac Unknown cellulitis Verified 06/14/21 10:12 Vital Signs Vital Signs - 24 hr 10/16/23 15:03 10/16/23 16:23 10/16/23 16:54 Temperature 97.6 F Pulse Rate 87
--- NOTE | 2023-10-17 15:04 | SUR.OPER ---
Per Kaylyn ASSOCIATE DESIGNER, Call made to Dr. Castro to report that patient had went into afib with rvr.
--- NOTE | 2023-10-17 15:50 | PC.NURSE ---
RN spoke with GI RN via telephone. Patient was found to be in afib with RVR in GI lab. Medically managed in GI lab. Patient returned to the unit. RN made hospitalist Tom aware of the event. No new orders at this time.
[2023-10-17 19:49] LABS: Hematocrit 45.6 % (42.0-52.0); Hemoglobin 14.8 g/dL (14.0-18.0); Immature Platelet Fraction Pct 5.2 % (0.9-11.2); Mean Corpuscular HGB Conc 32.5 g/dl (32-36); Mean Corpuscular Hemoglobin 31.2 pg (26-34); Mean Platelet Volume 10.7 fl (7.4-10.4); Platelet Count Result 127 k/mm3 (150-375); Red Blood Count 4.75 M/mm3 (4.6-6.20); Red Cell Distribution Width 14.6 % (11.5-14.5); White Blood Count 4.6 K/mm3 (4.5-10.0)
[2023-10-17 19:58] LABS: Alanine Aminotransferase 32 U/L (6-50); Albumin Level 4.2 g/dL (3.5-5.1); Alkaline Phosphatase 66 U/L (38-126); Anion Gap 11 mmol/L (4-12); Aspartate Amino Transferase 49 U/L (17-59); Blood Urea Nitrogen 44 mg/dL (9-20); Calcium 9.3 mg/dL (8.4-10.2); Carbon Dioxide 28 mmol/L (22-30); Chloride 104 mmol/L (98-107); Estimated CRCL calculation 39 ml/min; Estimated Glomerular Filt Rate 49; Glucose 119 mg/dL (65-110); Potassium 3.6 mmol/L (3.4-5.0); Sodium 143 mmol/L (137-145)
[2023-10-17] MEDS: PANTOPRAZOLE SODIUM IV 40 MG VIAL IV PUSH (20:35)
[2023-10-18] VITALS (11 sets, daily range): BP systolic 118–126; BP diastolic 84–100; PULSE 100–135; RESP 16–17; TEMP 36.4–36.9; O2SAT 92–99
--- NOTE | 2023-10-18 07:45 | PC.NURSE ---
RN assessed patient's telemetry and it appears patient is in Afib with possible RVR. Heart rate ranging from low 100's to 140's. RN called hospitalist Tom and informed him of patient's youth nutritional monitor alarming. Patient does not appear to be symptomatic. During corporate director talent assessment noticed patient pulled IV access out. RN called vascular access Amadou Meehan to obtain IV access. New orders obtained from hospitalrafael Santos (see MAR).
--- NOTE | 2023-10-18 08:09 | WPDANESPN ---
Anes - Prog Note Post-Op Date/Time: 10/18/23 08:09 Cardiovascular status: normal Respiratory status: normal Airway patency: baseline Mental status: baseline Post-Op hydration status: normal Vital Signs: Last Vital Signs Temp 36.6 C 10/18/23 05:58 Pulse 105 H 10/18/23 05:58 Resp 16 10/18/23 05:58 BP 124/100 H 10/18/23 05:58 Pulse Ox 92 10/18/23 05:58 O2 Del Method Room Air 10/17/23 21:53 FiO2 21 10/17/23 20:00 Pain Score (VAS): Patient asleep, no nonverbal signs of pain present at this time. I/O: Intake & Output 10/17/23 10/18/23 10/18/23 23:59 07:59 15:59 Intake Total 500 Output Total 400 Balance 100 Laboratory Tests 10/17/23 19:42 10/17/23 19:42 10/17/23 10/17/23 10:27 19:42 WBC 4.9 4.6 RBC 4.68 4.75 Hgb 14.6 14.8 Hct 44.6 45.6 MCV 95.3 96.0 MCH 31.2 31.2 MCHC 32.7 32.5 RDW 14.6 H 14.6 H Plt Count 124 L 127 L MPV 11.3 H 10.7 H % Immature Plt Fraction 4.8 5.2 Sodium 143 143 Potassium 3.7 3.6 Chloride 105 104 Carbon Dioxide 28 28 Anion Gap 10 11 BUN 39 H 44 H Creatinine 1.40 H 1.40 H Estim Creat Clear Calc 39 39 Estimated GFR 49 L 49 L Glucose 124 H 119 H Calcium 9.4 9.3 Total Bilirubin 1.0 1.0 AST 39 49 ALT 29 32 Alkaline Phosphatase 69 66 Total Protein 7.0 7.0 Albumin 4.1 4.2 Post-procedural complaints: none Patient Feedback: Patient satisfied with anesthetic care.
--- NOTE | 2023-10-18 08:15 | PC.NURSE ---
Vascular access Amadou Meehan obtained IV access. RN gathered medication for patient and entered room to obtain vitals and noticed patient no longer has IV access as he has pulled it out.
[2023-10-18 08:51] LABS: Hematocrit 44.1 % (42.0-52.0); Hemoglobin 14.6 g/dL (14.0-18.0); Immature Platelet Fraction Pct 6.1 % (0.9-11.2); Mean Corpuscular HGB Conc 33.1 g/dl (32-36); Mean Corpuscular Hemoglobin 31.3 pg (26-34); Mean Corpuscular Volume 94.4 fl (80-100); Mean Platelet Volume 11.8 fl (7.4-10.4); Platelet Count Result 114 k/mm3 (150-375); Red Blood Count 4.67 M/mm3 (4.6-6.20); Red Cell Distribution Width 14.5 % (11.5-14.5); White Blood Count 5.8 K/mm3 (4.5-10.0)
--- NOTE | 2023-10-18 09:06 | PM.IMPN ---
Progress Note: A&P Assessment and Plan (1) BRIGID (acute kidney injury): Code(s): N17.9 - Acute kidney failure, unspecified Status: Acute (2) Atrial fibrillation: Code(s): I48.91 - Unspecified atrial fibrillation Status: Acute (3) Coffee ground emesis: Code(s): K92.0 - Hematemesis Status: Acute (4) Weakness: Code(s): R53.1 - Weakness Status: Acute (5) BPH w/o urinary obs/LUTS: Code(s): N40.0 - Benign prostatic hyperplasia without lower urinary tract symptoms Status: Acute Plan upper GI bleed monitor H& H. 15.9 -13.6 -14.4 -14.5. Platelets 1 1 4 Continue IV hydration. Continue IV Protonix. NPO after midnight. No aspirin No anticoagulation GI consult EGD and colonoscopy Avoid any NSAID use or any steroid use BRIGID cause dehydration serum creatinine 1.4-1.2-1.4 Avoid nephrotoxic drugs. Monitor antihypertensive drug therapy. Avoid NSAIDs. Routine CMP monitoring GFR. Monitor electrolytes especially potassium. AFIB Optimize ARNI/ LEVI-inhibitor/Beta-blockers, metoprolol statin and antiplatelet therapy Monitor for RVR and SOB Keeping BMI less than 25 Advised low-salt low carb diet. Cardiology Echo results noted consider Cardizem > Aminodro if still in Afib history of atrial fibrillation. Noted on any anticoagulant due to risk of falls History of hyperlipidemia history of anxiety continue alprazolam Depakote history hypertension continue metoprolol. History memory loss continue Aricept and melatonin history of gout will hold colchicine patient has no symptoms Subjective Date/time seen: 10/18/23 09:06 Interval history: Still very uncooperative not taking his oral medications been in and out of AFib since yesterday EGD showed acute gastritis but no active bleeding Review of Systems Review of Systems: All systems reviewed & are unremarkable except as noted in HPI and below Exam Narrative: GENERAL: Well appearing, no acute distress. HEAD: Normocephalic, atraumatic. NECK: Supple. No adenopathy, no masses. RESPIRATORY: respirations nonlabored. , no rales, wheezing. CARDIOVASCULAR: IRRegular rate and rhythm without murmurs, . Peripheral pulses 2+ and equal bilaterally. ABDOMINAL: Soft, nontender, nondistended, no hepatosplenomegaly. Normoactive BS. MUSCULOSKELETAL: no Epigastric and no hypochondrial tenderness SKIN: Warm, dry, NEURO: . Moves all extremities Objective Data Vital Signs Vital Signs: Vital Signs - 24 hr 10/17/23 14:13 10/17/23 15:11 10/17/23 15:21 Temperature 36.5 C Pulse Rate 61 116 H 112 H Respiratory Rate 22 H 21 H 20 Blood Pressure 101/81 92/72 L 92/54 L Pulse Oximetry 93 100 95 Oxygen Delivery Room Air Room Air Room Air Fraction of Inspired Oxygen 10/17/23 15:31 10/17/23 16:00 10/17/23 21:42 Temperature 36.4 C Pulse Rate 109 H 108 H 92 Respiratory Rate 22 H 16 Blood Pressure 98/64 L 118/74 Pulse Oximetry 98 96 Oxygen Delivery Room Air Fraction of Inspired Oxygen 10/17/23 20:00 10/17/23 20:00 10/18/23 00:00 Temperature Pulse Rate 113 H 92 135 H Respiratory Rate 16 Blood Pressure Pulse Oximetry 96 Oxygen Delivery Room Air Fraction of Inspired Oxygen 21 10/18/23 04:00 10/17/23 21:53 10/18/23 05:58 Temperature 36.6 C Pulse Rate 128 H 105 H Respiratory Rate 16 Blood Pressure 124/100 H Pulse Oximetry 96 92 Oxygen Delivery Room Air Fraction of Inspired Oxygen Intake/Output Intake/Output: Intake & Output 10/15/23 10/16/23 10/17/23 10/18/23 23:59 23:59 23:59 23:59 Intake Total 2395 750.0 Output Total 650 400 Balance 1745 350.0 Meds/Results Medications: Active Medications Generic Name Dose Route Start Last Admin Trade Name Freq PRN Reason Stop Dose Admin Acetaminophen 650 mg 10/16/23 13:57 Acetaminophen 325 Mg Tablet PO Q4H PRN Mild Pain (1-3) or Fever On
[2023-10-18 09:37] LABS: Alanine Aminotransferase 32 U/L (6-50); Albumin Level 3.9 g/dL (3.5-5.1); Alkaline Phosphatase 66 U/L (38-126); Anion Gap 10 mmol/L (4-12); Aspartate Amino Transferase 38 U/L (17-59); Bilirubin,Total 0.8 mg/dL (0.2-1.3); Blood Urea Nitrogen 47 mg/dL (9-20); Calcium 9.1 mg/dL (8.4-10.2); Carbon Dioxide 28 mmol/L (22-30); Chloride 102 mmol/L (98-107); Estimated CRCL calculation 39 ml/min; Estimated Glomerular Filt Rate 49; Glucose 107 mg/dL (65-110); Potassium 3.1 mmol/L (3.4-5.0); Sodium 140 mmol/L (137-145)
--- NOTE | 2023-10-18 09:40 | PC.NURSE ---
RN spoke with hospitalist Tom. Updated him on patient and how he immediately pulled out IV access so RN is unable to give scheduled IV medications (see MAR). RN asked hospitalist Tom that medications be switched to oral.
--- NOTE | 2023-10-18 12:37 | WPDGIPROGNO ---
Progress Note: A&P Assessment and Plan (1) Coffee ground emesis: Code(s): K92.0 - Hematemesis Status: Acute Assessment and Plan: probably from esophagitis, no more episode ok to advance diet continue with ppi daily will follow as needed (2) Erosive esophagitis: Code(s): K22.10 - Ulcer of esophagus without bleeding Status: Acute Assessment and Plan: on ppi (3) Dementia: Code(s): F03.90 - Unspecified dementia, unspecified severity, without behavioral disturbance, psychotic disturbance, mood disturbance, and anxiety Status: Acute (4) Atrial fibrillation: Code(s): I48.91 - Unspecified atrial fibrillation Status: Acute (5) BRIGID (acute kidney injury): Code(s): N17.9 - Acute kidney failure, unspecified Status: Acute Subjective Date/time seen: 10/18/23 12:37 Interval history: egd yesterday showed grade II erosive esophagitis, no active bleeding no new events other than Afib, he is confused as baseline. Review of Systems Review of Systems: All systems reviewed & are unremarkable except as noted in HPI and below Exam Const: General: comfortable and no acute distress HENMT: Face/Nose/Sinus: Normal nares present Eyes: General: appearance normal, both eyes and all related structures Neck: Neck: supple Resp: Auscultation: clear to auscultation bilaterally Cardio: Rate: regular rate Rhythm: abnormal rhythm irregularly irregular GI: Inspection: non-distended GI Palp: Yes Soft to palpation and No Tenderness to palpation present (GI) Auscultation: normal bowel sounds Skin: General skin exam: normal color Neuro: Motor exam (neuro): 5/5 motor strength present throughout Other: awake and alert but confused, he does not know where he is at or date. Extrem: General: normal to inspection Psych: Affect: normal affect Objective Data Vital Signs Vital Signs: Vital Signs - 24 hr 10/17/23 14:13 10/17/23 15:11 10/17/23 15:21 Temperature 97.7 F Pulse Rate 61 116 H 112 H Respiratory Rate 22 H 21 H 20 Blood Pressure 101/81 92/72 L 92/54 L Pulse Oximetry 93 100 95 Oxygen Delivery Room Air Room Air Room Air Fraction of Inspired Oxygen 10/17/23 15:31 10/17/23 16:00 10/17/23 21:42 Temperature 97.6 F Pulse Rate 109 H 108 H 92 Respiratory Rate 22 H 16 Blood Pressure 98/64 L 118/74 Pulse Oximetry 98 96 Oxygen Delivery Room Air Fraction of Inspired Oxygen 10/17/23 20:00 10/17/23 20:00 10/18/23 00:00 Temperature Pulse Rate 113 H 92 135 H Respiratory Rate 16 Blood Pressure Pulse Oximetry 96 Oxygen Delivery Room Air Fraction of Inspired Oxygen 21 10/18/23 04:00 10/17/23 21:53 10/18/23 05:58 Temperature 97.9 F Pulse Rate 128 H 105 H Respiratory Rate 16 Blood Pressure 124/100 H Pulse Oximetry 96 92 Oxygen Delivery Room Air Fraction of Inspired Oxygen 10/18/23 07:45 10/18/23 08:00 Temperature Pulse Rate 114 H Respiratory Rate Blood Pressure Pulse Oximetry Oxygen Delivery Room Air Fraction of Inspired Oxygen Intake/Output Intake/Output: Intake & Output 10/15/23 10/16/23 10/17/23 10/18/23 23:59 23:59 23:59 23:59 Intake Total 2395 750.0 Output Total 650 400 Balance 1745 350.0 Meds/Results Medications: Active Medications Generic Name Dose Route Start Last Admin Trade Name Freq PRN Reason Stop Dose Admin Acetaminophen 650 mg 10/16/23 13:57 Acetaminophen 325 Mg Tablet PO Q4H PRN Mild Pain (1-3) or Fever Ondansetron HCl 4 mg 10/16/23 13:57 10/16/23 20:37 Ondansetron Inj 4 Mg/2 Ml Vial IV PUSH 4 mg Q4H PRN Administration Nausea Ondansetron HCl 4 mg 10/16/23 20:13 Ondansetron Inj 4 Mg/2 Ml Vial IV PUSH Q6H PRN Nausea And Vomiting Pantoprazole Sodium 40 mg 10/16/23 21:00 10/18/23 11:57 Pantoprazole Sodium Iv 40 Mg Vial IV PUSH Not Given Q12HR [facility] Promethazine HCl 25 mg 06
[2023-10-18] MEDS: METOPROLOL SUCCINATE EXT REL 50 MG TABCR PO (17:11)
[2023-10-18] MEDS: DIVALPROEX SODIUM SPRINKLE 125 MG CAP.DR PO (17:12)
[2023-10-18] MEDS: MELATONIN 5 MG TABLET PO (21:12)
[2023-10-18] MEDS: DONEPEZIL HCL 5 MG TABLET PO (21:12)
--- NOTE | 2023-10-18 21:24 | ECG_ITS ---
[facility] [address] Test Date: 2023-10-18 Pat Name: Jefe Rea Department: Room: 323 Gender: M Stave And Bolt Equalizer: FRANCISCO : 1950 Requested By: Pavel Solis Order Number: [id number] Stuart MD: Getachew Wisdom M.D. Measurements Intervals [place] Rate: 121 P: 0 [place]: 0 QRS: 7 QRSD: 99 T: -46 QT: 319 QTc: 453 Interpretive Statements ATRIAL FIBRILLATION WITH RAPID VENTRICULAR RESPONSE WITH ABERRANT CONDUCTION NONSPECIFIC ST & T-WAVE ABNORMALITY ABNORMAL RHYTHM ECG Compared to ECG 10/16/2023 11:34:12 ELECTRONIC PACEMAKER IS INHIBITED Electronically Signed On 10-19-2023 09:05:34 CDT by Getachew Wisdom M.D.
[2023-10-19] VITALS (11 sets, daily range): BP systolic 94–116; BP diastolic 66–79; PULSE 85–123; RESP 12–16; TEMP 36.3–36.6; O2SAT 94–97
--- NOTE | 2023-10-19 08:43 | PM.IMPN ---
Progress Note: A&P Assessment and Plan (1) BRIGID (acute kidney injury): Code(s): N17.9 - Acute kidney failure, unspecified Status: Acute Assessment and Plan: Likely secondary to dehydration Serum creatinine 1.2 Avoid nephrotoxic drugs. Monitor antihypertensive drug therapy. Avoid NSAIDs. Routine CMP monitoring GFR. Monitor electrolytes especially potassium. (2) Atrial fibrillation: Code(s): I48.91 - Unspecified atrial fibrillation Status: Acute Assessment and Plan: Rate controlled on metoprolol statin and antiplatelet therapy Monitor for RVR and SOB Keeping BMI less than 25 Advised low-salt low carb diet. Echo results noted (3) Coffee ground emesis: Code(s): K92.0 - Hematemesis Status: Acute Assessment and Plan: H/H remains stable, continue to monitor. Continue IV hydration. Continue IV Protonix. No aspirin No anticoagulation GI consult EGD showed grade II erosive esophagitis without active bleeding Avoid any NSAID use or any steroid use (4) Hypertension: Code(s): I10 - Essential (primary) hypertension Status: Acute Assessment and Plan: Chronic, stable on home medications. - Continue metoprolol 5 mg daily - Monitor (5) Dementia: Code(s): F03.90 - Unspecified dementia, unspecified severity, without behavioral disturbance, psychotic disturbance, mood disturbance, and anxiety Status: Acute Assessment and Plan: AO only to self. - Continue aricept and melatonin Subjective Date/time seen: 10/19/23 08:43 Interval history: Patient is pleasant lying comfortably in bed. He remains only oriented to self continues to rip out his IV. Per RN patient has been taking PO medications, will switch IV medications to PO at this time. Review of Systems Review of Systems: ROS unobtainable: Yes unobtainable due to mental status Exam Narrative: AF HR 91 RR 16 SpO2 94 BP 113/73 General: frail male in no acute respiratory distress who is nontoxic appearing, lying semi recumbent in bed. HEENT: Normocephalic. Atraumatic. Pupils equal round reactive to light. Extraocular movement intact. Sclera clear and anicteric. No facial asymmetry. Chest: Lungs are clear to auscultation bilaterally. No wheezes or crackles. CV: Heart was irregular rate and rhythm. S1/S2. No murmurs, gallops, or rubs. Abd: Abdomen was soft. Nontender. Nondistended. Positive bowel sounds. No organomegaly or masses. Ext: No clubbing, cyanosis, or edema. 2+ DP pulses bilaterally. Neuro: Patient is alert and oriented only to self. Cranial nerves 2-12 are intact. Speech is clear. Psych: Normal mood and affect. Patient is pleasant and cooperative. Skin: Warm and dry. No rashes noted. Objective Data Vital Signs Vital Signs: Vital Signs - 24 hr 10/18/23 14:00 10/18/23 12:00 10/18/23 17:11 Temperature 97.6 F Pulse Rate 100 110 H 116 H Respiratory Rate 17 Blood Pressure 123/94 H Pulse Oximetry 97 10/18/23 16:00 10/18/23 17:10 10/18/23 21:00 Temperature 98.5 F Pulse Rate 105 H 101 H Respiratory Rate 16 Blood Pressure 126/90 118/84 Pulse Oximetry 99 10/18/23 20:00 10/19/23 00:00 10/19/23 04:00 Temperature Pulse Rate 114 H 107 H 107 H Respiratory Rate Blood Pressure Pulse Oximetry 10/19/23 06:00 Temperature 97.3 F L Pulse Rate 102 H Respiratory Rate 16 Blood Pressure 116/79 Pulse Oximetry 95 Intake/Output Intake/Output: Intake & Output 10/16/23 10/17/23 10/18/23 10/19/23 23:59 23:59 23:59 23:59 Intake Total 2395 750.0 1440 240 Output Total 650 400 Balance 1745 350.0 1440 240 Meds/Results Medications: Active Medications Generic Name Dose Route Start Last Admin Trade Name Freq PRN Reason Stop Dose Admin Acetaminophen 650 mg 10/16/23 13:57 Acetaminophen 325 Mg Tablet PO Q4H PRN Mild Pain (1-3) or Fever Allopurinol 100 mg 10/19/23 09:00 Allopurinol
[2023-10-19] MEDS: DIVALPROEX SODIUM SPRINKLE 125 MG CAP.DR PO ×2 (08:57→17:28)
[2023-10-19] MEDS: allopurinoL 100 MG TABLET PO (08:57)
[2023-10-19] MEDS: ASPIRIN 81 MG ENTERIC TABLET PO (08:58)
[2023-10-19] MEDS: METOPROLOL SUCCINATE EXT REL 50 MG TABCR PO (08:58)
[2023-10-19] MEDS: CHOLECALCIFEROL 1,000 UNITS TABLET 1000 UNITS PO (08:58)
[2023-10-19 09:53] LABS: Basophils Absolute Auto 0.1 K/mm3 (0.0-0.1); Basophils Percent Auto 0.7 % (0.2-1.2); Eosinophils Absolute Auto 0.1 K/mm3 (0-0.3); Eosinophils Percent Auto 1.5 % (0-4.4); Hematocrit 42.8 % (42.0-52.0); Hemoglobin 14.1 g/dL (14.0-18.0); Immature Granulocyte Absolute 0.04 K/mm3 (0.00-0.031); Immature Granulocyte Percent A 0.5 % (0-0.5); Lymphocytes Absolute Auto 1.55 K/mm3 (0.9-3.2); Lymphocytes Percent Auto 19.3 % (18.3-44.2); Mean Corpuscular HGB Conc 32.9 g/dl (32-36); Mean Corpuscular Volume 94.1 fl (80-100); Mean Platelet Volume 11.5 fl (7.4-10.4); Monocytes Percent Auto 12.8 % (2.6-8.5); Neutrophils Absolute Auto 5.2 K/mm3 (1.3-6.7); Neutrophils Percent Auto 65.2 % (45.5-73.1); Platelet Count Result 143 k/mm3 (150-375); Red Blood Count 4.55 M/mm3 (4.6-6.20); Red Cell Distribution Width 14.1 % (11.5-14.5)
[2023-10-19 09:58] LABS: Alanine Aminotransferase 31 U/L (6-50); Albumin Level 3.8 g/dL (3.5-5.1); Alkaline Phosphatase 64 U/L (38-126); Anion Gap 10 mmol/L (4-12); Aspartate Amino Transferase 31 U/L (17-59); Bilirubin,Total 0.8 mg/dL (0.2-1.3); Blood Urea Nitrogen 41 mg/dL (9-20); Calcium 8.9 mg/dL (8.4-10.2); Carbon Dioxide 29 mmol/L (22-30); Chloride 101 mmol/L (98-107); Estimated CRCL calculation 46 ml/min; Estimated Glomerular Filt Rate 59; Glucose 111 mg/dL (65-110); Potassium 3.1 mmol/L (3.4-5.0); Sodium 140 mmol/L (137-145)
[2023-10-19 11:23] LABS: Glucose Point of Care 107 mg/dl (65-105)
[2023-10-19] MEDS: POTASSIUM CHLORIDE 20 MEQ ER TABLET 40 MEQ PO (15:47)
[2023-10-19 16:17] LABS: Glucose Point of Care 107 mg/dl (65-105)
--- NOTE | 2023-10-19 19:15 | PC.NURSE ---
RN called hospitalist at 1930 and was unable to reach Bella
[2023-10-19 20:43] LABS: Glucose Point of Care 133 mg/dl (65-105)
[2023-10-19] MEDS: MELATONIN 5 MG TABLET PO (20:47)
[2023-10-19] MEDS: DONEPEZIL HCL 5 MG TABLET PO (20:47)
[2023-10-20] VITALS (7 sets, daily range): BP systolic 100–110; BP diastolic 67–72; PULSE 51–88; RESP 15–16; TEMP 36.2–36.4; O2SAT 95–100
[2023-10-20 06:06] LABS: Basophils Percent Auto 0.5 % (0.2-1.2); Eosinophils Absolute Auto 0.1 K/mm3 (0-0.3); Eosinophils Percent Auto 1.6 % (0-4.4); Hematocrit 40.7 % (42.0-52.0); Hemoglobin 13.7 g/dL (14.0-18.0); Immature Granulocyte Absolute 0.06 K/mm3 (0.00-0.031); Immature Granulocyte Percent A 0.8 % (0-0.5); Immature Platelet Fraction Pct 6.7 % (0.9-11.2); Lymphocytes Absolute Auto 1.82 K/mm3 (0.9-3.2); Lymphocytes Percent Auto 24.8 % (18.3-44.2); Mean Corpuscular HGB Conc 33.7 g/dl (32-36); Mean Corpuscular Hemoglobin 31.1 pg (26-34); Mean Corpuscular Volume 92.5 fl (80-100); Mean Platelet Volume 11.4 fl (7.4-10.4); Monocytes Absolute Auto 0.8 K/mm3 (0.1-0.6); Monocytes Percent Auto 10.3 % (2.6-8.5); Neutrophils Absolute Auto 4.6 K/mm3 (1.3-6.7); Platelet Count Result 139 k/mm3 (150-375); Red Cell Distribution Width 13.8 % (11.5-14.5); White Blood Count 7.4 K/mm3 (4.5-10.0)
[2023-10-20 06:25] LABS: Alanine Aminotransferase 29 U/L (6-50); Albumin Level 3.6 g/dL (3.5-5.1); Alkaline Phosphatase 60 U/L (38-126); Anion Gap 6 mmol/L (4-12); Aspartate Amino Transferase 31 U/L (17-59); Bilirubin,Total 0.8 mg/dL (0.2-1.3); Blood Urea Nitrogen 31 mg/dL (9-20); Carbon Dioxide 29 mmol/L (22-30); Chloride 102 mmol/L (98-107); Estimated CRCL calculation 54 ml/min; Estimated Glomerular Filt Rate > 60; Glucose 99 mg/dL (65-110); Potassium 3.2 mmol/L (3.4-5.0); Sodium 137 mmol/L (137-145)
[2023-10-20] MEDS: allopurinoL 100 MG TABLET PO (09:15)
[2023-10-20] MEDS: CHOLECALCIFEROL 1,000 UNITS TABLET 1000 UNITS PO (09:15)
[2023-10-20] MEDS: ASPIRIN 81 MG ENTERIC TABLET PO (09:15)
[2023-10-20] MEDS: DIVALPROEX SODIUM SPRINKLE 125 MG CAP.DR PO ×2 (09:15→17:06)
[2023-10-20] MEDS: METOPROLOL SUCCINATE EXT REL 50 MG TABCR PO (09:16)
--- NOTE | 2023-10-20 10:24 | PM.IMPN ---
Progress Note: A&P Assessment and Plan (1) BRIGID (acute kidney injury): Code(s): N17.9 - Acute kidney failure, unspecified Status: Resolved Assessment and Plan: Resolved BRIGID Suspect it was Likely secondary to dehydration Serum creatinine 1.0 Continue to Avoid nephrotoxic drugs. Monitor antihypertensive drug therapy. Routine CMP monitoring GFR. Monitor electrolytes especially potassium. (2) Atrial fibrillation: Code(s): I48.91 - Unspecified atrial fibrillation Status: Acute Assessment and Plan: Rate controlled on metoprolol -continue statin and antiplatelet therapy -Monitor for RVR and SOB -Keeping BMI less than 25 -continue low-salt low carb diet. (3) Coffee ground emesis: Code(s): K92.0 - Hematemesis Status: Acute Assessment and Plan: H/H remains stable, continue to monitor. Encourage oral hydration -change to p.o. Protonix No aspirin No anticoagulation GI consult EGD showed grade II erosive esophagitis without active bleeding -continue to Avoid any NSAID use or any steroid use (4) Hypertension: Code(s): I10 - Essential (primary) hypertension Status: Acute Assessment and Plan: Chronic, stable on home medications. - Continue metoprolol 5 mg daily - Monitor (5) Dementia: Code(s): F03.90 - Unspecified dementia, unspecified severity, without behavioral disturbance, psychotic disturbance, mood disturbance, and anxiety Status: Acute Assessment and Plan: AO only to self. - Continue aricept and melatonin Time Spent With Patient Time with patient: 25 - 35 minutes Subjective Date/time seen: 10/20/23 10:24 Interval history: Patient is pleasant lying comfortably in bed. He remains only oriented to self, continues to pull at medical equipment, sitter is by the bedside who reports pt with a poor appetite only eating small bites meal. Switch IV medications to PO at this time. Pt denies any pain at this time. Does not give any other hx at this time. Review of Systems Review of Systems: All systems reviewed & are unremarkable except as noted in HPI and below ROS unobtainable: Yes unobtainable due to mental status Exam Narrative: General: frail male in no acute respiratory distress who is nontoxic appearing, lying semi recumbent in bed. HEENT: Normocephalic. Atraumatic. Pupils equal round reactive to light. Extraocular movement intact. Sclera clear and anicteric. No facial asymmetry. Chest: Lungs are clear to auscultation bilaterally. No wheezes or crackles. CV: Heart was irregular rate and rhythm. S1/S2. No murmurs, gallops, or rubs. Abd: Abdomen was soft. Nontender. Nondistended. Positive bowel sounds. No organomegaly or masses. Ext: No clubbing, cyanosis, or edema. 2+ DP pulses bilaterally. Neuro: Patient is alert and oriented only to self. Cranial nerves 2-12 are intact. Speech is clear. Psych: Normal mood and affect. Patient is pleasant and cooperative. Skin: Warm and dry. No rashes noted. Objective Data Vital Signs Vital Signs: Vital Signs - 24 hr 10/19/23 13:51 10/19/23 12:00 10/19/23 16:00 Temperature 97.4 F L Pulse Rate 91 89 123 H Respiratory Rate 16 Blood Pressure 113/73 Pulse Oximetry 94 10/19/23 19:41 10/19/23 20:13 10/20/23 02:18 Temperature 97.9 F 97.3 F L Pulse Rate 90 90 Respiratory Rate 12 14 Blood Pressure 98/69 L 94/66 L 100/72 Pulse Oximetry 97 97 10/20/23 04:01 10/19/23 20:00 10/20/23 00:00 Temperature 97.6 F Pulse Rate 78 85 78 Respiratory Rate 16 Blood Pressure 101/67 Pulse Oximetry 97 10/20/23 04:00 Temperature Pulse Rate 76 Respiratory Rate Blood Pressure Pulse Oximetry Intake/Output Intake/Output: Intake & Output 10/17/23 10/18/23 10/19/23 10/20/23 23:59 23:59 23:59 23:59 Intake Total 750.0 1440 598 358 Output Total 400 200 Balance 350.0 1440 598 158 Meds/Results Medications: Active Medications
[2023-10-20] MEDS: MELATONIN 5 MG TABLET PO (21:02)
[2023-10-20] MEDS: ACETAMINOPHEN 325 MG TABLET 650 MG PO (21:02)
[2023-10-20] MEDS: DONEPEZIL HCL 5 MG TABLET PO (21:02)
[2023-10-20] MEDS: ALPRAZolam (*CRX) 0.25 MG TABLET PO (21:03)
[2023-10-21 08:00] VITALS: PULSE 86
[2023-10-21 08:14] LABS: Basophils Percent Auto 0.3 % (0.2-1.2); Eosinophils Absolute Auto 0.1 K/mm3 (0-0.3); Eosinophils Percent Auto 1.8 % (0-4.4); Hematocrit 40.4 % (42.0-52.0); Hemoglobin 13.8 g/dL (14.0-18.0); Immature Granulocyte Absolute 0.06 K/mm3 (0.00-0.031); Immature Granulocyte Percent A 0.9 % (0-0.5); Immature Platelet Fraction Pct 4.8 % (0.9-11.2); Lymphocytes Absolute Auto 1.63 K/mm3 (0.9-3.2); Mean Corpuscular HGB Conc 34.2 g/dl (32-36); Mean Corpuscular Hemoglobin 31.5 pg (26-34); Mean Corpuscular Volume 92.2 fl (80-100); Mean Platelet Volume 11.1 fl (7.4-10.4); Monocytes Absolute Auto 0.6 K/mm3 (0.1-0.6); Monocytes Percent Auto 9.3 % (2.6-8.5); Neutrophils Absolute Auto 4.3 K/mm3 (1.3-6.7); Neutrophils Percent Auto 63.7 % (45.5-73.1); Platelet Count Result 128 k/mm3 (150-375); Red Blood Count 4.38 M/mm3 (4.6-6.20); Red Cell Distribution Width 13.9 % (11.5-14.5); White Blood Count 6.8 K/mm3 (4.5-10.0)
[2023-10-21 08:23] LABS: Alanine Aminotransferase 31 U/L (6-50); Albumin Level 3.4 g/dL (3.5-5.1); Alkaline Phosphatase 52 U/L (38-126); Anion Gap 5 mmol/L (4-12); Aspartate Amino Transferase 36 U/L (17-59); Bilirubin,Total 0.7 mg/dL (0.2-1.3); Blood Urea Nitrogen 21 mg/dL (9-20); Calcium 8.6 mg/dL (8.4-10.2); Carbon Dioxide 30 mmol/L (22-30); Chloride 103 mmol/L (98-107); Estimated CRCL calculation 67 ml/min; Estimated Glomerular Filt Rate > 60; Glucose 95 mg/dL (65-110); Potassium 3.2 mmol/L (3.4-5.0); Sodium 138 mmol/L (137-145)
--- NOTE | 2023-10-21 08:47 | PM.IMPN ---
Progress Note: A&P Assessment and Plan (1) BRIGID (acute kidney injury): Code(s): N17.9 - Acute kidney failure, unspecified Status: Resolved Assessment and Plan: Resolved BRIGID Suspect it was Likely secondary to dehydration Serum creatinine 0.80 Continue to Avoid nephrotoxic drugs. Monitor antihypertensive drug therapy. Routine CMP monitoring GFR. Hypokalemia, K+ is 3.2 -give Potassium Chloride 40meq powder for liquid once (2) Atrial fibrillation: Code(s): I48.91 - Unspecified atrial fibrillation Status: Acute Assessment and Plan: Rate controlled on metoprolol -continue statin and antiplatelet therapy -Monitor for RVR and SOB -Keeping BMI less than 25 -continue low-salt low carb diet. (3) Coffee ground emesis: Code(s): K92.0 - Hematemesis Status: Resolved Assessment and Plan: H/H remains stable, continue to monitor. Encourage oral hydration -continue p.o. Protonix No aspirin No anticoagulation GI consult: EGD showed grade II erosive esophagitis without active bleeding -continue to Avoid any NSAID use or any steroid use (4) Hypertension: Code(s): I10 - Essential (primary) hypertension Status: Acute Assessment and Plan: Chronic, stable on home medications. -check vitals q.4 hours - Continue metoprolol 5 mg daily - Monitor (5) Dementia: Code(s): F03.90 - Unspecified dementia, unspecified severity, without behavioral disturbance, psychotic disturbance, mood disturbance, and anxiety Status: Acute Assessment and Plan: AO only to self. - Continue aricept and melatonin Subjective Date/time seen: 10/21/23 08:47 Interval history: Patient is pleasant lying comfortably in bed, in no acute distress. He remains only oriented to self, continues to pull at medical equipment. observed bilateral circumferential bruising to upper arms,as well as moderate hematoma to right ac. Pt denies any pain when asked, he is unable to provide any HPI at this time. Labs reviewed K+ 3.2 Review of Systems Review of Systems: ROS unobtainable: Yes unobtainable due to mental status Exam Narrative: General: frail male in no acute respiratory distress who is nontoxic appearing, lying semi recumbent in bed. HEENT: Normocephalic. Atraumatic. Pupils equal round reactive to light. Extraocular movement intact. Sclera clear and anicteric. No facial asymmetry. Chest: Lungs are clear to auscultation bilaterally. No wheezes or crackles. CV: Heart was irregular rate and rhythm. S1/S2. No murmurs, gallops, or rubs. Abd: Abdomen was soft. Nontender. Nondistended. Positive bowel sounds. No organomegaly or masses. Ext: No clubbing, cyanosis, or edema. 2+ DP pulses bilaterally. Neuro: Patient is alert and oriented only to self. Cranial nerves 2-12 are intact. Speech is clear. Psych: Normal mood and affect. Patient is pleasant and cooperative. Skin: Bilateral upper arm circumferential bruising, moderate hematoma right AC Objective Data Vital Signs Vital Signs: Vital Signs - 24 hr 10/20/23 09:15 10/20/23 14:00 10/20/23 20:36 Temperature 97.5 F L 97.1 F L Pulse Rate 87 51 L 88 Respiratory Rate 15 16 Blood Pressure 110/69 105/72 Pulse Oximetry 100 95 Intake/Output Intake/Output: Intake & Output 10/18/23 10/19/23 10/20/23 10/21/23 23:59 23:59 23:59 23:59 Intake Total 8146 250 4267 Output Total 700 Balance 9768 689 1241 Meds/Results Medications: Active Medications Generic Name Dose Route Start Last Admin Trade Name Freq PRN Reason Stop Dose Admin Acetaminophen 650 mg 10/16/23 13:57 10/20/23 21:02 Acetaminophen 325 Mg Tablet PO 650 mg Q4H PRN Administration Mild Pain (1-3) or Fever Allopurinol 100 mg 10/19/23 09:00 10/20/23 09:15 Allopurinol 100 Mg Tablet PO 100 mg DAILY SIDRA Administration Alprazolam 0.25 mg 10/18/23 13:28 10/20/23 21:03 Alprazolam (*Crx) 0.25 Mg Tablet PO
--- NOTE | 2023-10-21 09:05 | PC.NURSE ---
When RN assumed care pt id band was not in the room or on pt so AM meds will be given once that is received.
[2023-10-21 12:00] VITALS: PULSE 89
--- NOTE | 2023-10-21 12:06 | PC.NURSE ---
0900 MEDs will be given NOW since RN has pt ID BAND
[2023-10-21 12:07] VITALS: PULSE 88
[2023-10-21] MEDS: ASPIRIN 81 MG ENTERIC TABLET PO (12:07)
[2023-10-21] MEDS: PANTOPRAZOLE 40 MG TABLET PO (12:07)
[2023-10-21] MEDS: DIVALPROEX SODIUM SPRINKLE 125 MG CAP.DR PO ×2 (12:07→17:16)
[2023-10-21] MEDS: METOPROLOL SUCCINATE EXT REL 50 MG TABCR PO (12:07)
[2023-10-21] MEDS: CHOLECALCIFEROL 1,000 UNITS TABLET 1000 UNITS PO (12:08)
[2023-10-21] MEDS: allopurinoL 100 MG TABLET PO (12:08)
[2023-10-21 14:00] VITALS: BP 115/74; PULSE 65; RESP 16; TEMP 36.4; O2SAT 99
[2023-10-21 16:00] VITALS: PULSE 77
[2023-10-21] MEDS: POTASSIUM CHLORIDE 20 MEQ PACKET (FOR LIQUID) 40 MEQ PO (16:56)
[2023-10-21] MEDS: DONEPEZIL HCL 5 MG TABLET PO (19:56)
[2023-10-21] MEDS: ALPRAZolam (*CRX) 0.25 MG TABLET PO (19:57)
[2023-10-21] MEDS: MELATONIN 5 MG TABLET PO (19:57)
[2023-10-21 20:00] VITALS: PULSE 88
[2023-10-22] VITALS (9 sets, daily range): BP systolic 98–114; BP diastolic 74–79; PULSE 77–103; RESP 16–18; TEMP 36.4; O2SAT 94–99
[2023-10-22 06:41] LABS: Basophils Absolute Auto 0.1 K/mm3 (0.0-0.1); Basophils Percent Auto 0.7 % (0.2-1.2); Eosinophils Absolute Auto 0.1 K/mm3 (0-0.3); Eosinophils Percent Auto 0.7 % (0-4.4); Hematocrit 47.5 % (42.0-52.0); Hemoglobin 15.8 g/dL (14.0-18.0); Immature Granulocyte Absolute 0.17 K/mm3 (0.00-0.031); Immature Granulocyte Percent A 1.2 % (0-0.5); Immature Platelet Fraction Pct 7.7 % (0.9-11.2); Lymphocytes Percent Auto 11.6 % (18.3-44.2); Mean Corpuscular HGB Conc 33.3 g/dl (32-36); Mean Corpuscular Hemoglobin 31.7 pg (26-34); Mean Corpuscular Volume 95.2 fl (80-100); Monocytes Absolute Auto 1.4 K/mm3 (0.1-0.6); Monocytes Percent Auto 9.9 % (2.6-8.5); Neutrophils Absolute Auto 10.5 K/mm3 (1.3-6.7); Neutrophils Percent Auto 75.9 % (45.5-73.1); Platelet Count Result 137 k/mm3 (150-375); Red Blood Count 4.99 M/mm3 (4.6-6.20); Red Cell Distribution Width 14.5 % (11.5-14.5); White Blood Count 13.8 K/mm3 (4.5-10.0)
[2023-10-22 07:04] LABS: Alanine Aminotransferase 55 U/L (6-50); Albumin Level 3.8 g/dL (3.5-5.1); Alkaline Phosphatase 58 U/L (38-126); Anion Gap 9 mmol/L (4-12); Aspartate Amino Transferase 53 U/L (17-59); Bilirubin,Total 0.8 mg/dL (0.2-1.3); Blood Urea Nitrogen 27 mg/dL (9-20); Calcium 9.5 mg/dL (8.4-10.2); Carbon Dioxide 24 mmol/L (22-30); Chloride 108 mmol/L (98-107); Estimated CRCL calculation 67 ml/min; Estimated Glomerular Filt Rate > 60; Glucose 103 mg/dL (65-110); Potassium 4.5 mmol/L (3.4-5.0); Sodium 141 mmol/L (137-145)
[2023-10-22] MEDS: allopurinoL 100 MG TABLET PO (08:22)
[2023-10-22] MEDS: METOPROLOL SUCCINATE EXT REL 50 MG TABCR PO (08:22)
[2023-10-22] MEDS: CHOLECALCIFEROL 1,000 UNITS TABLET 1000 UNITS PO (08:22)
[2023-10-22] MEDS: PANTOPRAZOLE 40 MG TABLET PO (08:22)
[2023-10-22] MEDS: DIVALPROEX SODIUM SPRINKLE 125 MG CAP.DR PO ×2 (08:22→17:01)
[2023-10-22] MEDS: ASPIRIN 81 MG ENTERIC TABLET PO (08:22)
--- NOTE | 2023-10-22 08:33 | PM.IMPN ---
Progress Note: A&P Assessment and Plan (1) BRIGID (acute kidney injury): Code(s): N17.9 - Acute kidney failure, unspecified Status: Resolved Assessment and Plan: Resolved BRIGID Suspect it was Likely secondary to dehydration Serum creatinine 0.80 Continue to Avoid nephrotoxic drugs. Monitor antihypertensive drug therapy. Routine CMP monitoring GFR. Hypokalemia, K+ is 3.2 -give Potassium Chloride 40meq powder for liquid once 10/21: BRIGID has resolved. Electrolytes reviewed today and are normal. (2) Atrial fibrillation: Code(s): I48.91 - Unspecified atrial fibrillation Status: Acute Assessment and Plan: Rate controlled on metoprolol -continue statin and antiplatelet therapy -Monitor for RVR and SOB -Keeping BMI less than 25 -continue low-salt low carb diet. 10/21: Heart rate on telemetry shows AFib with a rate in the 80s. Continue with metoprolol. (3) Coffee ground emesis: Code(s): K92.0 - Hematemesis Status: Resolved Assessment and Plan: H/H remains stable, continue to monitor. Encourage oral hydration -continue p.o. Protonix No aspirin No anticoagulation GI consult: EGD showed grade II erosive esophagitis without active bleeding -continue to Avoid any NSAID use or any steroid use 10/21: No change. Hemoglobin stable. (4) Hypertension: Code(s): I10 - Essential (primary) hypertension Status: Acute Assessment and Plan: Chronic, stable on home medications. -check vitals q.4 hours - Continue metoprolol 50 mg daily - Monitor 10/21: Blood pressures reviewed. (5) Dementia: Code(s): F03.90 - Unspecified dementia, unspecified severity, without behavioral disturbance, psychotic disturbance, mood disturbance, and anxiety Status: Acute Assessment and Plan: AO only to self. - Continue aricept and melatonin Plan UA, chest x-ray leukocytosis Repeat CBC Subjective Date/time seen: 10/22/23 08:33 Interval history: Patient with a PMH of dementia and HLD presents with complaints of coffee-ground emesis. 10/21: Patient is pleasantly confused. Unable to complete ROS due to his mental status. He can tell me his name date of . I asked him if he was having pain or shortness of breath and he just smiles. Had planned to discharge him today however his white blood cell count did jump from 6.8 to 13.8. UA has trace leukocytes, +1 bacteria, and james in color. Chest x-ray ordered. Review of Systems Review of Systems: All systems reviewed & are unremarkable except as noted in HPI and below ROS unobtainable: Yes unobtainable due to mental status Exam Narrative: General: well appearing, thin, frail, appears stated age. HEENT: normocephalic, atraumatic. Mucous membranes moist. EOMI, PERRLA, bilateral sclera anicteric, no conjunctival injection. Neck supple without JVD, lymphadenopathy, or bruit. Respiratory: clear to auscultation diminished bilaterally. No rales/rhonic/wheezes. Cardiovascular: Regular rate and rhythm, normal S1-S2 upon auscultation. No murmurs, rubs, or clicks. PMI is nondisplaced, capillary refill less than 3 second. Abdomen: Soft, round, no pulsatile masses, nondistended and nontender. No rebound, no guarding. No CVA tenderness, no hepatosplenomegaly. Bowel sounds present to all four quadrants. No high pitch or tinkling sounds, resonant to percussion. Extremities: No cyanosis, clubbing, or edema present. Pulses are palpable 2/2. Active ROM to all four extremities. Neuro: Alert and orientated x 1. PERRLA. Cranial nerves 2-12 intact without focal deficit. Skin: Warm, dry, and intact, without rash, erythema, or lesion. Lines: Incisions: Psych: pleasant, cooperative, normal speech, normal affect, no hallucinations, no dysarthria, confused Objective Data Vital Signs Vital Signs: Vital Signs - 24 hr 10/21/23 12:07 10/21/23 12:00 10/21/23 14:00 Temperature 97.6 F Pulse Rate 88
[2023-10-22 11:40] LABS: Appearance Urine Clear (Clear); Bacteria Urine 1+ /hpf; Bilirubin Urine Negative (Negative); Blood Urine Negative (Negative); Color Urine Yellow (Yellow); Glucose Urine UA Negative (Negative); Ketones Urine Trace mg/dL (Negative); Leukocyte Esterase Ur Trace LEU/UL (Negative); Nitrate Urine Negative (Negative); Non Pathogenic Casts 0-2; Protein Urine Negative (Negative); RBC Urine 0-2 /hpf (0-2); Specific Grav Ur 1.023 (1.001-1.035); Squamous Epithelial Cell Urine None Seen /hpf (Few); Urobilinogen Urine 0.2 mg/dL (<2.0); WBC Urine 0-5 /hpf (0-3); pH Urine 5.5 (5.0-9.0)
[2023-10-22 11:56] LABS: Add Urine Microscopic? YES
[2023-10-22 13:11] LABS: Hemoglobin 14.2 g/dL (14.0-18.0); Mean Corpuscular HGB Conc 33.8 g/dl (32-36); Mean Corpuscular Hemoglobin 31.6 pg (26-34); Mean Corpuscular Volume 93.5 fl (80-100); Mean Platelet Volume 11.1 fl (7.4-10.4); Platelet Count Result 145 k/mm3 (150-375); Red Blood Count 4.49 M/mm3 (4.6-6.20); Red Cell Distribution Width 14.5 % (11.5-14.5)
[2023-10-22 18:15] LABS: SARS-CoV-2 RNA PCR Negative (Negative)
--- NOTE | 2023-10-24 16:37 | PM.DS ---
DS: Admitting Diagnosis Discharge Date 10/22/23 Admitting Diagnosis Coffee-ground emesis DS: Discharge Diagnosis Discharge Diagnosis (1) BRIGID (acute kidney injury): Code(s): N17.9 - Acute kidney failure, unspecified Status: Resolved Assessment and Plan: Resolved BRIGID Suspect it was Likely secondary to dehydration Serum creatinine 0.80 Continue to Avoid nephrotoxic drugs. Monitor antihypertensive drug therapy. Routine CMP monitoring GFR. Hypokalemia, K+ is 3.2 -give Potassium Chloride 40meq powder for liquid once 10/21: BRIGID has resolved. Electrolytes reviewed today and are normal. (2) Atrial fibrillation: Code(s): I48.91 - Unspecified atrial fibrillation Status: Acute Assessment and Plan: Rate controlled on metoprolol -continue statin and antiplatelet therapy -Monitor for RVR and SOB -Keeping BMI less than 25 -continue low-salt low carb diet. 10/21: Heart rate on telemetry shows AFib with a rate in the 80s. Continue with metoprolol. (3) Coffee ground emesis: Code(s): K92.0 - Hematemesis Status: Resolved Assessment and Plan: H/H remains stable, continue to monitor. Encourage oral hydration -continue p.o. Protonix No aspirin No anticoagulation GI consult: EGD showed grade II erosive esophagitis without active bleeding -continue to Avoid any NSAID use or any steroid use 10/21: No change. Hemoglobin stable. (4) Hypertension: Code(s): I10 - Essential (primary) hypertension Status: Acute Assessment and Plan: Chronic, stable on home medications. -check vitals q.4 hours - Continue metoprolol 50 mg daily - Monitor 10/21: Blood pressures reviewed. (5) Dementia: Code(s): F03.90 - Unspecified dementia, unspecified severity, without behavioral disturbance, psychotic disturbance, mood disturbance, and anxiety Status: Acute Assessment and Plan: AO only to self. - Continue aricept and melatonin Plan UA, chest x-ray leukocytosis Repeat CBC DS: Summary Hospital Course Reason for hospitalization: Erosive esophagitis Hospital Course: 73-year-old male who lives in a senior care presented with complaints of vomiting and coffee-ground emesis. GI was consulted and completed an upper EGD finding grade 2 esophagitis. Patient was started on Protonix. His stay was prolonged with an BRIGID requiring IV fluids. On 10/21 he was discharged back to his facility in stable condition. Time Spent with Patient Time attestation: Total time spent providing and/or coordinating discharge services:58 Exam Narrative: General: well appearing, thin, frail, appears stated age. HEENT: normocephalic, atraumatic. Mucous membranes moist. EOMI, PERRLA, bilateral sclera anicteric, no conjunctival injection. Neck supple without JVD, lymphadenopathy, or bruit. Respiratory: clear to auscultation diminished bilaterally. No rales/rhonic/wheezes. Cardiovascular: Regular rate and rhythm, normal S1-S2 upon auscultation. No murmurs, rubs, or clicks. PMI is nondisplaced, capillary refill less than 3 second. Abdomen: Soft, round, no pulsatile masses, nondistended and nontender. No rebound, no guarding. No CVA tenderness, no hepatosplenomegaly. Bowel sounds present to all four quadrants. No high pitch or tinkling sounds, resonant to percussion. Extremities: No cyanosis, clubbing, or edema present. Pulses are palpable 2/2. Active ROM to all four extremities. Neuro: Alert and orientated x 1. PERRLA. Cranial nerves 2-12 intact without focal deficit. Skin: Warm, dry, and intact, without rash, erythema, or lesion. Lines: Incisions: Psych: pleasant, cooperative, normal speech, normal affect, no hallucinations, no dysarthria, confused DS: Data Data Completed and Pending Completed studies during hospitalization: Pending at discharge 10/17/23 15:03 Surgical [PTH] Routine Discharge Plan Discharge Attending physician on disc
== END 2023-10-22 18:40 | DRG 381 ==
LOC: ANHED 12:30 → ANH3MEDSUR 15:28
PROVIDERS: Family Medicine; Internal Medicine; Internal Medicine Gastroenterology; Student in an Organized Health Care Education/Training Program; Admitting Provider Hospitalist; Emergency Provider Student in an Organized Health Care Education/Training Program; Visit Provider Nurse Practitioner Acute Care
PROC: 0DJ08ZZ Inspection of Upper Intestinal Tract, Via Natural or Artificial Opening Endoscopic (ICD-10-PCS; CPT 43235; principal; 2023-10-17 16:00)
DX: K22.11 Ulcer of esophagus with bleeding (principal); I48.20 Chronic atrial fibrillation, unspecified; N17.9 Acute kidney failure, unspecified; K29.70 Gastritis, unspecified, without bleeding; K44.9 Diaphragmatic hernia without obstruction or gangrene; I10 Essential (primary) hypertension; D69.6 Thrombocytopenia, unspecified; D51.9 Vitamin B12 deficiency anemia, unspecified; E53.9 Vitamin B deficiency, unspecified; E86.0 Dehydration; E87.6 Hypokalemia; E78.5 Hyperlipidemia, unspecified; N40.0 Benign prostatic hyperplasia without lower urinary tract symptoms; M10.079 Idiopathic gout, unspecified ankle and foot; R41.3 Other amnesia; F03.90 Unspecified dementia, unspecified severity, without behavioral disturbance, psychotic disturbance, mood disturbance, and anxiety; F41.9 Anxiety disorder, unspecified; F17.210 Nicotine dependence, cigarettes, uncomplicated; Z95.0 Presence of cardiac pacemaker; Z79.82 Long term (current) use of aspirin; Z11.52 Encounter for screening for COVID-19
CPT/HCPCS: 36415; 71045; 71046; 80048; 80053; 81001; 81003; 82948; 83605; 83735; 84443; 84484; 85014; 85018; 85025; 85027; 85055; 85610; 85730; 87635; 88305; 93005; 96361; 96372; 96374; 96375; 99285; A9270; C9113; G0378; J2371; J2405; J2550; J2704; J7030; J7120